=== PATIENT | female | born 1945 | race American Indian/Alaskan Native ===

== ENCOUNTER 2018-08-01 13:31 | Inpatient (IN) | payer MEDICARE ==
[2018-08-01 15:50] LABS: Basophils % (Auto) 0.2 % (0.0-1.8); Eosinophils # (Auto) 0.2 K/mm3 (0.0-0.4); Eosinophils % (Auto) 4.2 % (0.0-4.3); Hematocrit 40.9 % (30.3-42.9); Hemoglobin 13.6 gm/dl (10.1-14.3); Lymphocytes # (Auto) 0.6 K/mm3 (1.2-5.4); Mean Corpuscular HGB Conc 33 % (30-34); Mean Corpuscular Volume 88 fl (79-97); Monocytes # (Auto) 0.2 K/mm3 (0.0-0.8); Monocytes % (Auto) 4.3 % (0.0-7.3); Platelet Count 233 K/mm3 (140-440); Red Blood Count 4.63 M/mm3 (3.65-5.03); Red Cell Distribution Width 13.9 % (13.2-15.2)
[2018-08-01 16:01] LABS: INR 1.06 (0.87-1.13)
[2018-08-01 16:13] LABS: Albumin 3.3 g/dL (3.9-5); BUN/Creatinine Ratio 29; Blood Urea Nitrogen 23 mg/dL (7-17); Calcium 9.7 mg/dL (8.4-10.2); Hemolysis Index 6
[2018-08-01 16:32] LABS: Alanine Aminotransferase < 5 units/L (7-56)
--- NOTE | 2018-08-01 16:54 | Emergency Department Report ---
ED Female HPI - General Chief complaint: Vaginal Bleeding Stated complaint: VAGINAL BLEED Time Seen by Provider: 08/01/18 15:10 Source: family, EMS Mode of arrival: Stretcher Limitations: Altered Mental Status - History of Present Illness Initial comments: 73-year-old female with a past medical history of dementia, diabetes, hypertension, Parkinson's, patient is nonverbal, contracted with minimal spontaneous movement , can not interact/follow commands and with a PEG tube from shelter with vaginal bleeding today. states that she has had intermittent vaginal bleeding for the last 3 months. Initially this was thought to be due to blood thinners therefore the shelter discontinued her blood thinners. She continued to have intermittent bleeding and was seen by [facility] on July 14. Patient did not have any vaginal bleeding at that time. Yesterday patient was diagnosed with the UTI after urine was sent from the shelter. She was started on antibiotics yesterday and a dose this morning. Patient was sent to the ER for worsening/heavy vaginal bleeding today. Patient was here in on 07/28 and had incision and drainage of sacral abscess - Related Data Home Medications Medication Instructions Recorded Confirmed Last Taken Carbidopa/Levodopa 25-100 [Sinemet 1 each PO TID 02/18/15 08/01/18 02/18/15 25/100] Docusate Sodium [Colace CAP] 100 mg PO DAILY 02/18/15 08/01/18 02/18/15 Aspirin [Aspirin BABY CHEW TAB] 81 mg PO QDAY 08/01/18 08/01/18 Unknown Glycerin/Propylene Glycol 1 drop OU BID 08/01/18 08/01/18 Unknown [Artificial Tears Drops] Ibuprofen [Motrin] 800 mg FEEDTUBE DAILY 08/01/18 08/01/18 Unknown Insulin Aspart [NovoLOG Flexpen] See Protocol SQ AC 08/01/18 08/01/18 Unknown Insulin Detemir [Levemir Flextouch] 25 units SUB-Q QHS 08/01/18 08/01/18 Unknown Insulin NPH/Regular [NovoLIN 70/30] 24 units SUB-Q BID 08/01/18 08/01/18 Unknown Lisinopril [Zestril TAB] 2.5 mg PO QDAY 08/01/18 08/01/18 Unknown Multivitamin Tab W-MINERAL 1 each PO DAILY 08/01/18 08/01/18 Unknown [Multiple Vitamin/Mineral (Theragran M)] Nut.tx.gluc.intoler,Lac-Fr,Soy 65 ml FEEDTUBE CONT 08/01/18 08/01/18 Unknown [Glucerna 1.5 Montrell] Polyethylene Glycol 3350 17 gm PO DAILY 08/01/18 08/01/18 Unknown [Smoothlax] traMADol [Ultram] 50 mg FEEDTUBE Q6HR PRN 08/01/18 08/01/18 Unknown Allergies Allergy/AdvReac Type Severity Reaction Status Date / Time Sulfa (Sulfonamide Allergy Unknown Verified 02/18/15 16:50 Antibiotics) ED Review of Systems ROS: Stated complaint: VAGINAL BLEED Other details as noted in HPI ED Past Medical Hx - Past Medical History Hx Hypertension: Yes Hx Diabetes: Yes Hx Liver Disease: No Hx Arthritis: Yes Hx Seizures: No Hx Psychiatric Treatment: Yes (anxiety/depression) Hx Dementia: Yes Hx HIV: No Additional medical history: GERD, UTI, flaccid neuropathic bladder, parkinsons, constipation - Surgical History Additional Surgical History: unknown - Social History Smoking Status: Never Smoker Substance Use Type: None - Medications Home Medications: Home Medications Medication Instructions Recorded Confirmed Last Taken Type Carbidopa/Levodopa 25-100 [Sinemet 1 each PO TID 02/18/15 08/01/18 02/18/15 History 25/100] Docusate Sodium [Colace CAP] 100 mg PO DAILY 02/18/15 08/01/18 02/18/15 History Aspirin [Aspirin BABY CHEW TAB] 81 mg PO QDAY 08/01/18 08/01/18 Unknown History Glycerin/Propylene Glycol 1 drop OU BID 08/01/18 08/01/18 Unknown History [Artificial Tears Drops] Ibuprofen [Motrin] 800 mg FEEDTUBE DAILY 08/01/18 08/01/18 Unknown History Insulin Aspart [NovoLOG Flexpen] See Protocol SQ AC 08/01/18 08/01/18 Unknown History Insulin Detemir [Levemir Flextouch] 25 units SUB-Q QHS 08/01/18 08/01/18 Unknown History Insulin NPH/Regular [NovoLIN 70/30] 24 units SUB-Q BID 08/01/18 08/01/18 Unknown History Lisinopril [Zestril TAB] 2.5 mg PO QDAY 08/01/18 08/01/18 Unknown History Multivitamin Tab W-MINERAL 1 each PO DAILY 08/01/18 08/01/18 Unknown History [Multiple Vitamin/Mineral (Theragran M)] Nut.tx.gluc.intoler,Lac-Fr,Soy 65 ml FEEDTUBE CONT 08/01/18 08/01/18 Unknown History [Glucerna 1.5 Montrell] Polyethylene Glycol 3350 17 gm PO DAILY 08/01/18 08/01/18 Unknown History [Smoothlax] traMADol [Ultram] 50 mg FEEDTUBE Q6HR PRN 08/01/18 08/01/18 Unknown History ED Physical Exam - General Limitations: Altered Mental Status - Other Other exam information: General: No limitations, patient is alert in no acute distress Head exam: Atraumatic, normocephalic Eyes exam: Normal appearance ENT: Moist mucous membrane, normal oropharynx Neck exam: Normal inspection, full range of motion, no meningismus nontender Respiratory exam: Clear to auscultation bilateral, no wheezes, rales, crackles Cardiovascular: Normal rate and rhythm, normal heart sounds Abdomen: Soft, nondistended, and nontender, with normal bowel sounds, no rebound, or guarding. PEG tube : Vaginal blood noted on digital exam Rectal: Brown stool noted on digital rectal exam without gross bleeding or melena Back: Normal Inspection, full range of motion, no tenderness Neurologic: Opens eyes to voice, does not follow commands, does not speak, and onto no spontaneous movement of extremities. Psychiatric: normal affect, normal mood Skin: Sacral wound noted status post I&D without active drainage ED Course Vital Signs 08/01/18 08/01/18 15:08 18:07 Temperature 98 F Pulse Rate 87 76 Respiratory 16 16 Rate Blood Pressure 106/67 127/70 [Left] O2 Sat by Pulse 96 95 Oximetry - Consultations Consultation #1: 08/01/18 19:33 Case Jacek urology, will consult 08/01/18 19:[address] [facility] [employer]AL[employer] SUPERVISOR, will consult ED Medical Decision Making - Lab Data Result diagrams: 08/01/18 15:42 08/01/18 15:42 Lab Results 08/01/18 08/01/18 08/01/18 Range/Units 15:42 15:42 15:42 WBC 4.2 L (4.5-11.0) K/mm3 RBC 4.63 (3.65-5.03) M/mm3 Hgb 13.6 (10.1-14.3) gm/dl Hct 40.9 (30.3-42.9) % MCV 88 (79-97) fl MCH 29 (28-32) pg MCHC 33 (30-34) % RDW 13.9 (13.2-15.2) % Plt Count 233 (140-440) K/mm3 Lymph % (Auto) 15.0 (13.4-35.0) % Porter % (Auto) 4.3 (0.0-7.3) % Eos % (Auto) 4.2 (0.0-4.3) % Baso % (Auto) 0.2 (0.0-1.8) % Lymph # 0.6 L (1.2-5.4) K/mm3 Porter # 0.2 (0.0-0.8) K/mm3 Eos # 0.2 (0.0-0.4) K/mm3 Baso # 0.0 (0.0-0.1) K/mm3 Seg Neutrophils % 76.3 H (40.0-70.0) % Seg Neutrophils # 3.2 (1.8-7.7) K/mm3 PT 14.5 (12.2-14.9) Sec. INR 1.06 (0.87-1.13) APTT 31.0 (24.2-36.6) Sec. Sodium 143 (137-145) mmol/L Potassium 4.1 (3.6-5.0) mmol/L Chloride 105.7 (98-107) mmol/L Carbon Dioxide 27 (22-30) mmol/L Anion Gap 14 mmol/L BUN 23 H (7-17) mg/dL Creatinine 0.8 (0.7-1.2) mg/dL Estimated GFR > 60 ml/min BUN/Creatinine Ratio 29 % Glucose 83 (65-100) mg/dL Calcium 9.7 (8.4-10.2) mg/dL Total Bilirubin 0.20 (0.1-1.2) mg/dL AST 17 (5-40) units/L ALT < 5 L (7-56) units/L Alkaline Phosphatase 63 (35-129) units/L Total Protein 7.0 (6.3-8.2) g/dL Albumin 3.3 L (3.9-5) g/dL Albumin/Globulin Ratio 0.9 % Urine Color (Yellow) Urine Turbidity (Clear) Urine pH (5.0-7.0) Ur Specific Butternut (1.003-1.030) Urine Protein (Negative) mg/dL Urine Glucose (UA) (Negative) mg/dL Urine Ketones (Negative) mg/dL Urine Blood (Negative) Urine Nitrite (Negative) Urine Bilirubin (Negative) Urine Urobilinogen (<2.0) mg/dL Ur Leukocyte Esterase (Negative) Urine WBC (Auto) (0.0-6.0) /HPF Urine RBC (Auto) (0.0-6.0) /HPF U Epithel Cells (Auto) (0-13.0) /HPF 08/01/18 Range/Units 17:11 WBC (4.5-11.0) K/mm3 RBC (3.65-5.03) M/mm3 Hgb (10.1-14.3) gm/dl Hct (30.3-42.9) % MCV (79-97) fl MCH (28-32) pg MCHC (30-34) % RDW (13.2-15.2) % Plt Count (140-440) K/mm3 Lymph % (Auto) (13.4-35.0) % Porter % (Auto) (0.0-7.3) % Eos % (Auto) (0.0-4.3) % Baso % (Auto) (0.0-1.8) % Lymph # (1.2-5.4) K/mm3 Porter # (0.0-0.8) K/mm3 Eos # (0.0-0.4) K/mm3 Baso # (0.0-0.1) K/mm3 Seg Neutrophils % (40.0-70.0) % Seg Neutrophils # (1.8-7.7) K/mm3 PT (12.2-14.9) Sec. INR (0.87-1.13) APTT (24.2-36.6) Sec. Sodium (137-145) mmol/L Potassium (3.6-5.0) mmol/L Chloride (98-107) mmol/L Carbon Dioxide (22-30) mmol/L Anion Gap mmol/L BUN (7-17) mg/dL Creatinine (0.7-1.2) mg/dL Estimated GFR ml/min BUN/Creatinine Ratio % Glucose (65-100) mg/dL Calcium (8.4-10.2) mg/dL Total Bilirubin (0.1-1.2) mg/dL AST (5-40) units/L ALT (7-56) units/L Alkaline Phosphatase (35-129) units/L Total Protein (6.3-8.2) g/dL Albumin (3.9-5) g/dL Albumin/Globulin Ratio % Urine Color Red (Yellow) Urine Turbidity Cloudy (Clear) Urine pH 7.0 (5.0-7.0) Ur Specific Butternut 1.028 (1.003-1.030) Urine Protein 100 mg/dl (Negative) mg/dL Urine Glucose (UA) Neg (Negative) mg/dL Urine Ketones Tr (Negative) mg/dL Urine Blood Lg (Negative) Urine Nitrite Neg (Negative) Urine Bilirubin Neg (Negative) Urine Urobilinogen < 2.0 (<2.0) mg/dL Ur Leukocyte Esterase Mod (Negative) Urine WBC (Auto) > 182.0 H (0.0-6.0) /HPF Urine RBC (Auto) > 182.0 (0.0-6.0) /HPF U Epithel Cells (Auto) 7.0 (0-13.0) /HPF - Radiology Data Radiology results: report reviewed PROCEDURE: PELVIC ULTRASOUND, TRANSVAGINAL TECHNIQUE: Ultrasound examination of the pelvis using transvaginal technique HISTORY: post menopausal vag bleeding COMPARISONS: None FINDINGS: PELVIC ULTRASOUND, TRANSVAGINAL: Uterus size and shape are normal, 7.2 x 3.1 x 5.0 cm. Small hypoechoic nodule upper findings may be a smoothly marginated fibroid measuring 17 mm. The endometrium is homogenous. Endometrial thickness is 6.0 mm. There is no cul-de-sac free fluid. No left adnexal abnormality. Left ovary not visualized with transvaginal technique. What appears to be the right ovary appears to contain nonspecific linear calcification. Right ovarian size 3.2 x 1.0 x 1.5 cm. IMPRESSION: Small nodule upper uterine fundus may be a fibroid Left ovary not visualized with transvaginal technique What may be the right ovary appears to contain nonspecific calcification PROCEDURE: US PELVIC COMPLETE TECHNIQUE: Transabdominal grayscale and color-flow imaging of the pelvis was performed. HISTORY: post menopausal vag bleeding COMPARISONS: Transvaginal study also performed today FINDINGS: The urinary bladder is moderately distended and appears to contain debris in the dependent portion of the urinary bladder. Differential diagnosis includes a urinary bladder mass. The uterus measures 7.2 cm x 3.1 cm x 5 cm. Endometrial thickness measures 7 mm. There is a small amount of free fluid in the cul-de-sac. The left ovary measures 1.3 cm x 2 cm x 1.7 cm and is unremarkable in appearance. The right ovary is not visualized. IMPRESSION: 1. Debris in the dependent portion of the urinary bladder versus mass in the posterior aspect of the urinary bladder. 2. Increased thickness of the endometrium (7 mm). 3. Small amount of free fluid in the pelvis. 4. The left ovary is unremarkable. The right ovary is not visualized. MRI of the pelvis may be helpful for further evaluation. Alternatively CT of the pelvis with IV contrast may be helpful. - Medical Decision Making h/h and coags normal rocephin for uti, and urine cultures pending victoria with gross hematuria Case discussed with urology and METALIZING SUPERVISOR for in-house consult Hospitalist informed of admission - Differential Diagnosis uti, cancer, fistula Critical Care Time: No Critical care attestation.: If time is entered above; I have spent that time in minutes in the direct care of this critically ill patient, excluding procedure time. ED Disposition Clinical Impression: Postmenopausal vaginal bleeding, UTI (urinary tract infection), Hematuria, Parkinson disease Disposition: OP ADMIT IP TO THIS HOSP Is pt being admited?: Yes Condition: Stable Time of Disposition: 19:38 (DR Palma/hosp)
--- NOTE | 2018-08-01 17:32 | Ultrasound Report ---
PROCEDURE: PELVIC ULTRASOUND, TRANSVAGINAL TECHNIQUE: Ultrasound examination of the pelvis using transvaginal technique HISTORY: post menopausal vag bleeding COMPARISONS: None FINDINGS: PELVIC ULTRASOUND, TRANSVAGINAL: Uterus size and shape are normal, 7.2 x 3.1 x 5.0 cm. Small hypoechoic nodule upper findings may be a smoothly marginated fibroid measuring 17 mm. The endometrium is homogenous. Endometrial thickness is 6.0 mm. There is no cul-de-sac free fluid. No left adnexal abnormality. Left ovary not visualized with transv aginal technique. What appears to be the right ovary appears to contain nonspecific linear calcification. Right ovarian size 3.2 x 1.0 x 1.5 cm. IMPRESSION: Small nodule upper uterine fundus may be a fibroid Left ovary not visualized with transvaginal technique What may be the right ovary appears to contain nonspecific calcification This document is electronically signed by Saul Tatum MD., August 01 2018 05:30:48 PM ET
--- NOTE | 2018-08-01 18:03 | Ultrasound Report ---
PROCEDURE: US PELVIC COMPLETE TECHNIQUE: Transabdominal grayscale and color-flow imaging of the pelvis was performed. HISTORY: post menopausal vag bleeding COMPARISONS: Transvaginal study also performed today FINDINGS: The urinary bladder is moderately distended and appears to contain debris in the dependent portion of the urinary bladder. Differential diagnosis includes a urinary bladder mass. The uterus measures 7.2 cm x 3.1 cm x 5 cm. Endometrial thickness measures 7 mm. There is a small amount of free fluid in the cul-de-sac. The left ovary measures 1.3 cm x 2 cm x 1.7 cm and is unremarkable in appearance. The right ovary is not visualized. IMPRESSION: 1. Debris in the dependent portion of the urinary bladder versus mass in the posterior aspect of the urinary bladder. 2. Increased thickness of the endometrium (7 mm). 3. Small amount of free fluid in the pelvis. 4. The left ovary is unremarkable. The right ovary is not visualized. MRI of the pelvis may be helpful for further evaluation. Alternatively CT of the pelvis with IV contr ast may be helpful. This document is electronically signed by Nicole Lomas MD., August 01 2018 06:02:02 PM ET
[2018-08-01 19:05] LABS: Color,Urine Red (Yellow)
[2018-08-01 19:06] LABS: Bilirubin,Urine NEG (Negative); Blood,Urine LG (Negative); RBC,Urine > 182.0 /HPF (0.0-6.0); Urobilinogen,Urine < 2.0 mg/dL (<2.0); WBC,Urine > 182.0 /HPF (0.0-6.0)
[2018-08-01] MEDS ORDERED: ROCEPHIN/NS 1 GM/50 ML 1 GM/50 ML BAG IV ONE (19:14)
[2018-08-01] MEDS ORDERED: NACL 0.9% 500 ML 500 ML IV ONE (21:47)
[2018-08-01] MEDS ORDERED: ZOFRAN IV PRN (22:00)
[2018-08-01] MEDS ORDERED: MORPHINE IV PRN (22:00)
[2018-08-01] MEDS ORDERED: D50W (25GM) Syringe IV PRN (22:02)
[2018-08-02] MEDS: NACL 0.9% 1000 ML 1,000 ML IV SCH ×5 (01:03→23:04)
[2018-08-02 01:18] LABS: Hematocrit 44.1 % (30.3-42.9); Hemoglobin 14.4 gm/dl (10.1-14.3)
[2018-08-02 08:07] LABS: Hematocrit 41.8 % (30.3-42.9); Hemoglobin 13.4 gm/dl (10.1-14.3)
[2018-08-02] MEDS: HumuLIN R SUB-Q SCH ×4 (08:14→23:07)
--- NOTE | 2018-08-02 08:28 | Consultation ---
History of Present Illness Consult date: 08/02/18 Reason for consult: other (vaginal bleeding) History of present illness: 73y/o female who presents to the ED from the skilled nursing with the complaint of presumed vaginal bleeding. The patient is non-verbal and the history was obtained from the spouse in the ED. Pelvic ultrasound was performed with minimally thickened endometrium of 6-7mm and findings of small leiomyoma. The abdominal ultrasound was concerning for a possible mass in the urinary bladder. Upon placement of the victoria, findings of blood and particulate matter. Past History Past Medical History: diabetes, other (Parkinson's disease; dementia) Social history: Medications and Allergies Allergies Allergy/AdvReac Type Severity Reaction Status Date / Time Sulfa (Sulfonamide Allergy Unknown Verified 02/18/15 16:50 Antibiotics) Home Medications Medication Instructions Recorded Confirmed Last Taken Type Carbidopa/Levodopa 25-100 [Sinemet 1 each PO TID 02/18/15 08/01/18 02/18/15 History 25/100] Docusate Sodium [Colace CAP] 100 mg PO DAILY 02/18/15 08/01/18 02/18/15 History Aspirin [Aspirin BABY CHEW TAB] 81 mg PO QDAY 08/01/18 08/01/18 Unknown History Glycerin/Propylene Glycol 1 drop OU BID 08/01/18 08/01/18 Unknown History [Artificial Tears Drops] Ibuprofen [Motrin] 800 mg FEEDTUBE DAILY 08/01/18 08/01/18 Unknown History Insulin Aspart [NovoLOG Flexpen] See Protocol SQ AC 08/01/18 08/01/18 Unknown History Insulin Detemir [Levemir Flextouch] 25 units SUB-Q QHS 08/01/18 08/01/18 Unknown History Insulin NPH/Regular [NovoLIN 70/30] 24 units SUB-Q BID 08/01/18 08/01/18 Unknown History Lisinopril [Zestril TAB] 2.5 mg PO QDAY 08/01/18 08/01/18 Unknown History Multivitamin Tab W-MINERAL 1 each PO DAILY 08/01/18 08/01/18 Unknown History [Multiple Vitamin/Mineral (Theragran M)] Nut.tx.gluc.intoler,Lac-Fr,Soy 65 ml FEEDTUBE CONT 08/01/18 08/01/18 Unknown History [Glucerna 1.5 Montrell] Polyethylene Glycol 3350 17 gm PO DAILY 08/01/18 08/01/18 Unknown History [Smoothlax] traMADol [Ultram] 50 mg FEEDTUBE Q6HR PRN 08/01/18 08/01/18 Unknown History Active Meds: Active Medications Acetaminophen (Tylenol) 650 mg PO Q4H PRN PRN Reason: Fever >101 Dextrose (D50w (25gm) Syringe) 50 ml IV PRN PRN PRN Reason: Hypoglycemia Sodium Chloride (Nacl 0.9% 1000 Ml) 1,000 mls @ 100 mls/hr IV DIRECT DIANNE Last Admin: 08/02/18 01:03 Dose: 100 mls/hr Documented by: Ceftriaxone Sodium (Rocephin/Ns 1 Gm/50 Ml) 1 gm in 50 mls @ 100 mls/hr IV Q24HR DIANNE; Protocol Sodium Chloride (Nacl 0.9% 500 Ml) 500 mls @ 999 mls/hr IV ONCE ONE Stop: 08/02/18 09:00 Insulin Human Regular (Humulin R) 0 units SUB-Q AC DIANNE; Protocol Last Admin: 08/02/18 08:14 Dose: Not Given Documented by: Insulin Human Regular (Humulin R) 0 units SUB-Q QHS DIANNE; Protocol Morphine Sulfate (Morphine) 2 mg IV Q4H PRN PRN Reason: Pain, Moderate (4-6) Ondansetron HCl (Zofran) 4 mg IV Q8H PRN PRN Reason: Nausea And Vomiting Review of Systems Genitourinary: vaginal bleeding, hematuria - Vital Signs Vital signs: Vital Signs Temp Pulse Resp BP Pulse Ox 98 F 87 16 106/67 96 08/01/18 15:08 08/01/18 15:08 08/01/18 15:08 08/01/18 15:08 08/01/18 15:08 Temp Pulse Resp BP Pulse Ox 100.1 F H 84 18 77/46 92 08/02/18 07:25 08/02/18 07:25 08/02/18 07:25 08/02/18 07:25 08/02/18 07:25 - Physical Exam Abdomen: Positive: normal appearance, soft Genitourinary (Female): Positive: normal external genitalia, other (no wallace bleeding on perineum; finger placed vaginally without evidence of vaginal mass nor blood on glove) Results Result Diagrams: 08/02/18 07:48 08/01/18 15:42 Abnormal lab results 08/01/18 08/01/18 08/01/18 Range/Units 15:42 15:42 17:11 WBC 4.2 L (4.5-11.0) K/mm3 Hgb (10.1-14.3) gm/dl Hct (30.3-42.9) % Lymph # 0.6 L (1.2-5.4) K/mm3 Seg Neutrophils % 76.3 H (40.0-70.0) % BUN 23 H (7-17) mg/dL POC Glucose (70-105) ALT < 5 L (7-56) units/L Albumin 3.3 L (3.9-5) g/dL Urine WBC (Auto) > 182.0 H (0.0-6.0) /HPF 08/02/18 08/02/18 Range/Units 01:02 08:07 WBC (4.5-11.0) K/mm3 Hgb 14.4 H (10.1-14.3) gm/dl Hct 44.1 H (30.3-42.9) % Lymph # (1.2-5.4) K/mm3 Seg Neutrophils % (40.0-70.0) % BUN (7-17) mg/dL POC Glucose 169 H (70-105) ALT (7-56) units/L Albumin (3.9-5) g/dL Urine WBC (Auto) (0.0-6.0) /HPF All other labs normal. Assessment and Plan - Patient Problems (1) Hematuria Current Visit: Yes Status: Acute Plan to address problem: secondary to patient's physical status a thorough exam is difficult would recommend further imaging to better assess the urinary bladder mass urology consultation would be beneficial; if a cystoscopy is performed under anesthesia, I would be more than willing to perform an endometrial biopsy at the same time to better assess the endometrium for pathology my suspicion for school janitor pathology is low thank you for the consult Wanda Holt MD (2) Parkinson disease Current Visit: Yes Status: Acute (3) Postmenopausal vaginal bleeding Current Visit: Yes Status: Acute
[2018-08-02] MEDS ORDERED: NACL 0.9% 500 ML 500 ML IV ONE (08:30)
--- NOTE | 2018-08-02 08:56 | Event Note ---
Date: 08/02/18 Please contact me if urology decides to proceed with a cystoscopy; I can also perform a more detailed exam under anesthesia along with an endometrial biopsy. Would recommend contacting the previous [facility] chalk extruding machine operator to determine if the biopsy was already performed in their office.
--- NOTE | 2018-08-02 09:34 | History and Physical Report ---
CHIEF COMPLAINT: Vaginal bleeding. HISTORY OF PRESENT ILLNESS: The patient is a 73-year-old female brought from the skilled nursing because of vaginal bleeding. The patient's says that the patient has had intermittent vaginal bleeding going on for about 3 months. Initially, the skilled nursing thought that the bleeding was due to blood thinner and discontinued the patient's blood thinner, but she continued to have intermittent bleeding. Was seen by [facility] on 07/14/2018 and the patient did not have vaginal bleeding at that time and was also diagnosed with UTI a day prior to presentation. The patient was subsequently started on antibiotics and then sent to the Emergency Room because of vaginal bleeding that started getting heavy. PAST MEDICAL HISTORY: Pertinent for hypertension, diabetes mellitus, arthritis, anxiety disorder and depression and also the patient has past medical history of dementia, gastroesophageal reflux disease, urinary tract infection/flaccid neuropathic bladder, Parkinson's and also the patient has past history of constipation. PAST SURGICAL HISTORY: Unremarkable. FAMILY HISTORY: Family history is noncontributory. SOCIAL HISTORY: The patient stays at the skilled nursing. Does not smoke, does not drink alcohol and does not use illicit drugs. MEDICATIONS: The patient is on Sinemet 25/100 one by mouth 3 times daily, Colace 100 mg by mouth daily, aspirin 81 mg by mouth daily. Also, the patient is on artificial tears one drop to the right eye twice daily and is on Motrin 800 mg daily. The patient is on insulin aspart per sliding scale and also on Levemir insulin 25 units subcutaneous at bedtime. The patient is on MPH regular insulin 70/30 25 units subcutaneous b.i.d. and lisinopril 2.5 mg by mouth daily. The patient is on multivitamin 1 by mouth daily and on Glucerna 65 mL per feeding tube. The patient is on MiraLax 17 g daily by mouth and tramadol 50 mg every 6 hours as needed for pain per tube. ALLERGIES: THE PATIENT IS ALLERGIC TO SULFA DRUGS. REVIEW OF SYSTEMS: CONSTITUTIONAL: There is no fever, no chills, no diaphoresis. HEENT: There is no headache or sore throat. CARDIOVASCULAR SYSTEM: There is no chest pain or orthopnea. RESPIRATORY SYSTEM: There is no shortness of breath or cough. GASTROINTESTINAL SYSTEM: There is no nausea, no vomiting, no abdominal pain, diarrhea or constipation. NEUROLOGICAL SYSTEM: There is no numbness, no dizziness, no altered mental status. MUSCULOSKELETAL SYSTEM: There is no joint pain or swelling. DERMATOLOGICAL SYSTEM: There is no skin rash or itching. GENITOURINARY SYSTEM: Vaginal bleeding present and hematuria present. No flank pain. No dysuria. Rest of system review is normal. PHYSICAL EXAMINATION: GENERAL: At the time of exam, the patient was found to be alert, oriented x 3 and not in acute distress. VITAL SIGNS: At the initial time of presentation show temperature of 98 degrees Fahrenheit, pulse of 87, respirations 16, blood pressure 106/67, O2 sat of 96% on room air. HEENT: Showed pupils to be equal, round, and reactive to light and accommodating. Extraocular muscles are intact. NECK: Neck is supple with no JVD or carotid bruit. CARDIOVASCULAR SYSTEM: Showed normal first and second heart sounds with no gallops or murmurs. RESPIRATORY SYSTEM: Showed good air entry on both sides of the lungs with no abnormal breath sounds. GASTROINTESTINAL SYSTEM: Show abdomen to be full, soft, nontender with no organomegaly or rigidity. NEUROLOGIC: Shows no focal deficit. MUSCULOSKELETAL SYSTEM: Show no joint swelling or tenderness. DERMATOLOGICAL SYSTEM: Show no skin rash. GENITOURINARY SYSTEM: Showing no costovertebral angle tenderness. PERTINENT LABORATORY AND IMAGING STUDIES: The patient had pelvic ultrasound done and this shows small nodule in the upper uterine fundus, which may be a fibroid according to the radiologist. There is finding of left ovary not visualized with transvaginal technique according to the radiologist. There is a shadow that may be the right ovary that appears to contain no specific calcification according to the radiologist. The patient's pelvic ultrasound shows debris in the dependent portion of the urinary bladder versus mass in the posterior aspect of the urinary bladder. There is finding of increased thickening of the endometrial and small amount of free fluid in the pelvis and the radiologist said that the left ovary is unremarkable, but the right is not visualized and says that MRI of the pelvis may be helpful. Lab result: The patient has CBC done with low white count of 4.2, normal hematocrit and normal hemoglobin was noted with CBC differential showing slightly elevated segmental neutrophil count of 76.3 and the patient's chemistry show high BUN of 23 with urinalysis showing high urine wbc's of greater 182 with moderate urine leukocyte esterase and negative nitrite and high urine rbc. DIAGNOSES: 1. Vaginal bleeding. 2. Bladder mass. 3. Urinary tract infection. PLAN OF CARE: 1. The patient will be admitted to medical floor. 2. The patient will continue Urology consult with Dr. Jeff Read and also will continue gynecological consult with Dr. Wanda Myles. 3. The patient will have hemoglobin and hematocrit checked every 6 hours serially x 3 more levels. 4. The patient will be on IV ceftriaxone 1 gram daily for treatment of UTI. 5. The patient will be on IV normal saline running at 100 mL an hour and will be on IV Zofran 4 mg every 8 hours for nausea and vomiting. 6. The patient will have Accu-Chek before meals and at bedtime, followed by low-dose sliding scale using regular insulin coverage. DVT prophylaxis will be true sequential compressive device. JOB# [id number] OCN/NTS MTDGarima
[2018-08-02] MEDS: ROCEPHIN/NS 1 GM/50 ML 1 GM/50 ML BAG IV SCH (09:40)
[2018-08-02] MEDS: TYLENOL PO PRN (12:40)
--- NOTE | 2018-08-02 13:33 | Progress Note ---
Assessment and Plan severe dementia pt has had cysto 1-[address] schumacher all neg rec ct can do cysto again as out pt if needed no acute emergency dictated Subjective Date of service: 08/02/18 Principal diagnosis: hematuria uti Objective - Constitutional Vitals: Vital Signs - 12hr 08/02/18 08/02/18 08/02/18 01:59 02:44 02:47 Temperature 98.6 F Pulse Rate 75 75 25 L Pulse Rate [ Apical] Respiratory 22 Rate Blood Pressure 148/127 Blood Pressure [Left] O2 Sat by Pulse 96 62 L 100 Oximetry 08/02/18 08/02/18 08/02/18 04:00 07:25 10:00 Temperature 100.1 F H 98 F Pulse Rate 68 84 63 Pulse Rate [ 63 Apical] Respiratory 18 22 Rate Blood Pressure 77/46 Blood Pressure 138/96 150/123 [Left] O2 Sat by Pulse 92 97 Oximetry 08/02/18 10:30 Temperature Pulse Rate 64 Pulse Rate [ Apical] Respiratory 22 Rate Blood Pressure Blood Pressure 140/100 [Left] O2 Sat by Pulse 97 Oximetry General appearance: Present: no acute distress - Psychiatric Psychiatric: other (dementia ) - Labs CBC & Chem 7: 08/02/18 07:48 08/01/18 15:42 Labs: Abnormal lab results 08/01/18 08/01/18 08/01/18 Range/Units 15:42 15:42 17:11 WBC 4.2 L (4.5-11.0) K/mm3 Hgb (10.1-14.3) gm/dl Hct (30.3-42.9) % Lymph # 0.6 L (1.2-5.4) K/mm3 Seg Neutrophils % 76.3 H (40.0-70.0) % BUN 23 H (7-17) mg/dL POC Glucose (70-105) ALT < 5 L (7-56) units/L Albumin 3.3 L (3.9-5) g/dL Urine WBC (Auto) > 182.0 H (0.0-6.0) /HPF 08/02/18 08/02/18 08/02/18 Range/Units 01:02 08:07 11:18 WBC (4.5-11.0) K/mm3 Hgb 14.4 H (10.1-14.3) gm/dl Hct 44.1 H (30.3-42.9) % Lymph # (1.2-5.4) K/mm3 Seg Neutrophils % (40.0-70.0) % BUN (7-17) mg/dL POC Glucose 169 H 178 H (70-105) ALT (7-56) units/L Albumin (3.9-5) g/dL Urine WBC (Auto) (0.0-6.0) /HPF Medications & Allergies - Medications Allergies/Adverse Reactions: Allergies Sulfa (Sulfonamide Antibiotics) Allergy (Verified 02/18/15 16:50) Unknown Home Medications: Home Medications Medication Instructions Recorded Confirmed Last Taken Type Carbidopa/Levodopa 25-100 [Sinemet 1 each PO TID 02/18/15 08/01/18 02/18/15 History 25/100] Docusate Sodium [Colace CAP] 100 mg PO DAILY 02/18/15 08/01/18 02/18/15 History Aspirin [Aspirin BABY CHEW TAB] 81 mg PO QDAY 08/01/18 08/01/18 Unknown History Glycerin/Propylene Glycol 1 drop OU BID 08/01/18 08/01/18 Unknown History [Artificial Tears Drops] Ibuprofen [Motrin] 800 mg FEEDTUBE DAILY 08/01/18 08/01/18 Unknown History Insulin Aspart [NovoLOG Flexpen] See Protocol SQ AC 08/01/18 08/01/18 Unknown History Insulin Detemir [Levemir Flextouch] 25 units SUB-Q QHS 08/01/18 08/01/18 Unknown History Insulin NPH/Regular [NovoLIN 70/30] 24 units SUB-Q BID 08/01/18 08/01/18 Unknown History Lisinopril [Zestril TAB] 2.5 mg PO QDAY 08/01/18 08/01/18 Unknown History Multivitamin Tab W-MINERAL 1 each PO DAILY 08/01/18 08/01/18 Unknown History [Multiple Vitamin/Mineral (Theragran M)] Nut.tx.gluc.intoler,Lac-Fr,Soy 65 ml FEEDTUBE CONT 08/01/18 08/01/18 Unknown History [Glucerna 1.5 [place]] Polyethylene Glycol 3350 17 gm PO DAILY 08/01/18 08/01/18 Unknown History [Smoothlax] traMADol [Ultram] 50 mg FEEDTUBE Q6HR PRN 08/01/18 08/01/18 Unknown History Active Medications: Generic Name Dose Route Start Last Admin Trade Name Bebeto PRN Reason Stop Dose Admin Acetaminophen 650 mg 08/01/18 22:01 08/02/18 12:40 Tylenol PO 650 mg Q4H PRN Administration Fever >101 Dextrose 50 ml 08/01/18 22:02 D50w (25gm) Syringe IV PRN PRN Hypoglycemia Sodium Chloride 1,000 mls @ 100 mls/hr 08/01/18 22:00 08/02/18 12:49 Nacl 0.9% 1000 Ml IV 100 mls/hr DIRECT DIANNE Administration Ceftriaxone Sodium 1 gm in 50 mls @ 100 mls/hr 08/02/18 10:00 08/02/18 09:40 Rocephin/Ns 1 Gm/50 Ml IV 100 mls/hr Q24HR DIANNE Administration Protocol Insulin Human Regular 0 units 08/02/18 07:30 08/02/18 12:37 Humulin R SUB-Q Not Given AC DIANNE Protocol Insulin Human Regular 0 units 08/02/18 22:00 Humulin R SUB-Q QHS DIANNE Protocol Morphine Sulfate 2 mg 08/01/18 22:00 Morphine IV Q4H PRN Pain, Moderate (4-6) Ondansetron HCl 4 mg 08/01/18 22:00 Zofran IV Q8H PRN Nausea And Vomiting
[2018-08-02 13:44] LABS: Hematocrit 38.7 % (30.3-42.9); Hemoglobin 12.4 gm/dl (10.1-14.3)
[2018-08-02] MEDS ORDERED: SIMPLE SYRUP FEEDTUBE PRN ×2 (14:22)
[2018-08-02] MEDS ORDERED: SODIUM BICARBONATE FEEDTUBE PRN (14:22)
[2018-08-02] MEDS ORDERED: PANCREAZE DR 10,500 UNIT FEEDTUBE PRN (14:22)
--- NOTE | 2018-08-02 15:59 | Progress Note ---
Assessment and Plan Assessment and plan: Patient is a 73 yo woman from [facility] with a history of PEG tube, Dementia, IDDM, hypertension and PD who presented to [facility] with vaginal bleeding, Pelvic ultrasound was performed with minimally thickened endometrium of 6-7mm and findings of small leiomyoma. The abdominal ultrasound was concerning for a possible mass in the urinary bladder. Upon placement of the victoria, findings of blood and particulate matter. Patient was just seen in ED for perineal abscess s/p I-n-D on 07/28/18 Vaginal bleeding: prosthetics lab technician consulted Bladder mass: Urology following UTI: treat with abx History Interval history: Patient was seen and examined. Follow-up on current diagnosis. Overnight uneventful. Patient is confused. Imaging, nursing note, chart, labs and old chart reviewed. Hospitalist Physical - Physical exam Narrative exam: Gen: WDWN, NAD, Awake, Alert, Orientated x 1 HEENT: NCAT, EOMI, PERRL, OP Clear Neck: supple, no adenopathy, no thyromegaly, no JVD CVS/Heart: RRR, normal S1S2, pulses present bilaterally Chest/Lungs: CTA B, Symmetrical chest expansion, good air entry bilaterally GI/Abdomen: soft, PEG tube, good bowel sounds, no guarding or rebound /Bladder: no suprapubic tenderness, no CVA or paraspinal tenderness Extermity/Skin: no c/c/e, no obvious rash MSK: FROM x 4 Neuro: CN 2-12 grossly intact, no new focal deficits Psych: calm - Constitutional Vitals: Temp Pulse Resp BP Pulse Ox 98.0 F 101 H 18 69/43 100 08/02/18 13:37 08/02/18 13:37 08/02/18 13:37 08/02/18 13:37 08/02/18 13:37 General appearance: Present: no acute distress Results - Labs CBC & Chem 7: 08/02/18 13:33 08/01/18 15:42 Labs: Laboratory Last Values WBC 4.2 K/mm3 (4.5-11.0) L 08/01/18 15:42 RBC 4.63 M/mm3 (3.65-5.03) 08/01/18 15:42 Hgb 12.4 gm/dl (10.1-14.3) 08/02/18 13:33 Hct 38.7 % (30.3-42.9) 08/02/18 13:33 MCV 88 fl (79-97) 08/01/18 15:42 MCH 29 pg (28-32) 08/01/18 15:42 MCHC 33 % (30-34) 08/01/18 15:42 RDW 13.9 % (13.2-15.2) 08/01/18 15:42 Plt Count 233 K/mm3 (140-440) 08/01/18 15:42 Lymph % (Auto) 15.0 % (13.4-35.0) 08/01/18 15:42 [place]ie % (Auto) 4.3 % (0.0-7.3) 08/01/18 15:42 Eos % (Auto) 4.2 % (0.0-4.3) 08/01/18 15:42 Baso % (Auto) 0.2 % (0.0-1.8) 08/01/18 15:42 Lymph # 0.6 K/mm3 (1.2-5.4) L 08/01/18 15:42 Davie # 0.2 K/mm3 (0.0-0.8) 08/01/18 15:42 Eos # 0.2 K/mm3 (0.0-0.4) 08/01/18 15:42 Baso # 0.0 K/mm3 (0.0-0.1) 08/01/18 15:42 Seg Neutrophils % 76.3 % (40.0-70.0) H 08/01/18 15:42 Seg Neutrophils # 3.2 K/mm3 (1.8-7.7) 08/01/18 15:42 PT 14.5 Sec. (12.2-14.9) 08/01/18 15:42 INR 1.06 (0.87-1.13) 08/01/18 15:42 APTT 31.0 Sec. (24.2-36.6) 08/01/18 15:42 Sodium 143 mmol/L (137-145) 08/01/18 15:42 Potassium 4.1 mmol/L (3.6-5.0) 08/01/18 15:42 Chloride 105.7 mmol/L (98-107) 08/01/18 15:42 Carbon Dioxide 27 mmol/L (22-30) 08/01/18 15:42 Anion Gap 14 mmol/L 08/01/18 15:42 BUN 23 mg/dL (7-17) H 08/01/18 15:42 Creatinine 0.8 mg/dL (0.7-1.2) 08/01/18 15:42 Estimated GFR > 60 ml/min 08/01/18 15:42 BUN/Creatinine Ratio 29 % 08/01/18 15:42 Glucose 83 mg/dL (65-100) 08/01/18 15:42 POC Glucose 178 (70-105) H 08/02/18 11:18 Calcium 9.7 mg/dL (8.4-10.2) 08/01/18 15:42 Total Bilirubin 0.20 mg/dL (0.1-1.2) 08/01/18 15:42 AST 17 units/L (5-40) 08/01/18 15:42 ALT < 5 units/L (7-56) L 08/01/18 15:42 Alkaline Phosphatase 63 units/L (35-129) 08/01/18 15:42 Total Protein 7.0 g/dL (6.3-8.2) 08/01/18 15:42 Albumin 3.3 g/dL (3.9-5) L 08/01/18 15:42 Albumin/Globulin Ratio 0.9 % 08/01/18 15:42 Urine Color Red (Yellow) 08/01/18 17:11 Urine Turbidity Cloudy (Clear) 08/01/18 17:11 Urine pH 7.0 (5.0-7.0) 08/01/18 17:11 Ur Specific Warren 1.028 (1.003-1.030) 08/01/18 17:11 Urine Protein 100 mg/dl mg/dL (Negative) 08/01/18 17:11 Urine Glucose (UA) Neg mg/dL (Negative) 08/01/18 17:11 Urine Ketones Tr mg/dL (Negative) 08/01/18 17:11 Urine Blood Lg (Negative) 08/01/18 17:11 Urine Nitrite Neg (Negative) 08/01/18 17:11 Urine Bilirubin Neg (Negative) 08/01/18 17:11 Urine Urobilinogen < 2.0 mg/dL (<2.0) 08/01/18 17:11 Ur Leukocyte Esterase Mod (Negative) 08/01/18 17:11 Urine WBC (Auto) > 182.0 /HPF (0.0-6.0) H 08/01/18 17:11 Urine RBC (Auto) > 182.0 /HPF (0.0-6.0) 08/01/18 17:11 U Epithel Cells (Auto) 7.0 /HPF (0-13.0) 08/01/18 17:11 Active Medications - Current Medications Current Medications: Generic Name Dose Route Start Last Admin Trade Name Freq PRN Reason Stop Dose Admin Acetaminophen 650 mg 08/01/18 22:01 08/02/18 12:40 Tylenol PO 650 mg Q4H PRN Administration Fever >101 Lipase/Protease/Amylase 1 each 08/02/18 14:22 Pancreaze 10,500 Unit FEEDTUBE PRN PRN For Clogged Feeding Tube Dextrose 50 ml 08/01/18 22:02 D50w (25gm) Syringe IV PRN PRN Hypoglycemia Sodium Chloride 1,000 mls @ 100 mls/hr 08/01/18 22:00 08/02/18 12:49 Nacl 0.9% 1000 Ml IV 100 mls/hr DIRECT DIANNE Administration Ceftriaxone Sodium 1 gm in 50 mls @ 100 mls/hr 08/02/18 10:00 08/02/18 09:40 Rocephin/Ns 1 Gm/50 Ml IV 100 mls/hr Q24HR DIANNE Administration Protocol Insulin Human Regular 0 units 08/02/18 07:30 08/02/18 12:37 Humulin R SUB-Q Not Given AC DIANNE Protocol Insulin Human Regular 0 units 08/02/18 22:00 Humulin R SUB-Q QHS DIANNE Protocol Morphine Sulfate 2 mg 08/01/18 22:00 Morphine IV Q4H PRN Pain, Moderate (4-6) Ondansetron HCl 4 mg 08/01/18 22:00 Zofran IV Q8H PRN Nausea And Vomiting Simple Syrup 15 ml 08/02/18 14:22 Simple Syrup FEEDTUBE PRN PRN Hypoglycemia Simple Syrup 30 ml 08/02/18 14:22 Simple Syrup FEEDTUBE PRN PRN Hypoglycemia Sodium Bicarbonate 325 mg 08/02/18 14:22 Sodium Bicarbonate FEEDTUBE PRN PRN For Clogged Feeding Tube Nutrition/Malnutrition Assess - Dietary Evaluation Nutrition/Malnutrition Findings: Nutrition Notes Start: 08/02/18 14:00 Freq: Status: Active Protocol: Document 08/02/18 14:00 (Rec: 08/02/18 14:07 [id number]) Co-Sign 08/02/18 14:00 LP Nutrition Notes Need for Assessment generated from: MD Order,flooring machine feeder Initial or Follow up Assessment Current Diagnosis Diabetes,Hypertension Other Pertinent Diagnosis Arthritis, anxiety disorder, depression, dementia, reflux disease, UTI Current Diet NPO Labs/Tests BUN: 23 POC: 178 Pertinent Medications D50W Height 5 ft 3 in Weight 71.6 kg [place] Body Weight (kg) 52.27 BMI 27.9 Weight Status Overweight Subjective/Other Information MD consult for Write/Manage TF . Observed patient in room. Pt states she's hungry. Pt was on glucerna before arrival while at skilled nursing. Pt was on glucerna 65ml/hr cyclic TF. Pt not able to tolerate full liquid diet. Burn Absent Trauma Absent #1 Nutrition Diagnosis Inadequate oral intake Etiology dementia and dysphagia As Evidenced by Signs and Symptoms Tube Feed regime at skilled nursing and choking on liquids during hospital Is patient on ventilator? No Is Patient Ambulatory and/or Out of Bed No REE-([facility]-confined to bed) 1422.492 Kcal/Kg value to use for calculation 25 Approximate Energy Requirements Using 1790 kcal/Kg Calculation Used for Recommendations Kcal/kg Additional Notes Protein: 86-107 g/day (1.2-1.5 g/kg) Fluid: 1 ml/kcal Nutrition Intervention Change Diet Order: Tube Feed Nutrition Support: Glucerna 1.2 @ 65ml/hr. Water flush 100 ml q 4 hr. Kcal 1,872 Protein (gm) 93 Fluid (mL) 1,255 Goal #1 TF tolerance Goal #2 Meet at least 75% of needs via TF Anticipated Discharge Needs: Tube Feed Follow-Up By: 08/04/18 Additional Comments F/U: New TF
--- NOTE | 2018-08-02 17:21 | Consultation ---
HISTORY OF PRESENT ILLNESS: The patient is a 73-year-old woman with severe dementia, noncommunicative, who has presented with vaginal bleeding and questionable debris in her bladder. She has had previous workup urologically within the last 1-[address] Gilmore. She is not hemorrhaging. The Kerr catheter was clear at this time. The rest of the history is unobtainable and could only be obtained from the chart and the patient's and son. PHYSICAL EXAMINATION: GENERAL: She is noncommunicative. She does not really moved. She is in no distress. ABDOMEN: Soft, nondistended. IMPRESSION: Vaginal bleeding with debris in the bladder, possible chronic urinary tract infection. We will get a CT scan without contrast just to be sure, hold cystoscopy unless there is an acute finding until she stabilizes as an outpatient. JOB# [id number] JOSELIN/JESUS
--- NOTE | 2018-08-02 18:05 | Cat Scan Report ---
PROCEDURE: CT ABDOMEN PELVIS WO CON TECHNIQUE: Axial helical imaging through the abdomen and pelvis with sagittal and coronal reformatte d images obtained. HISTORY: uti COMPARISONS: Pelvic ultrasound dated August 01, 2018. FINDINGS: Visualization of detail in portions of the abdomen and pelvis is limited by motion artifact. There appears to be areas of atelectasis in both lung bases. The gallbladder is moderately to markedly distended and contains a gallstone. There is no definite ev idence of pericholecystic inflammatory change. The liver, spleen and adrenal glands are unremarkable. There is a nonobstructing stone in the left renal pelvis. There is no evidence of hydronephrosis nor hydroureter. The bowel is normal caliber. The colon is largely air and fluid-filled with air-fluid levels and without definite evidence of raymond l wall thickening and no definite evidence of pericolic inflammatory change.. This may represent macias ges of enteritis. There is no evidence of pneumoperitoneum or free fluid. A percutaneous gastrostomy tube is present with the tip in the stomach. The abdominal aorta is normal caliber. There is no evidence of intra-abdominal adenopathy. The urinary bladder is decompressed around a balloon catheter. There is the appearance of increased t hickness of the urinary bladder wall and stranding of the perivesicular fat. The uterus and adnexa are unremarkable. The bony structures are notable for levocurvature of the lumbar spine, grade 1 anterolisthesis L4 on L5, multiple level degenerative facet change in the lumbar spine and multiple level canal stenosis in the lumbar spine. IMPRESSION: 1. Appearance of increased thickness of the urinary bladder wall with perivesicular inflammatory macias ge corresponding to the patient's history of cystitis. A bladder catheter is demonstrated within the urinary bladder. 2. Moderate to marked distention of the gallbladder which contains a gallstone. 3. Nonobstructing stone left renal pelvis. No evidence of hydronephrosis. 4. Findings suggestive of enteritis. There is no definite evidence of bowel wall thickening or adriane lic inflammatory change to suggest the presence of colitis. 5. Percutaneous gastrostomy tube with tip in the stomach. 6. Spondylitic change lumbar spine with levocurvature and canal stenosis. This document is electronically signed by Nicole Lomas MD., August 02 2018 06:03:40 PM ET
[2018-08-03] MEDS ORDERED: NACL 0.9% 250ML 250 ML IV ONE (02:45)
[2018-08-03] MEDS: TYLENOL PO PRN (03:02)
[2018-08-03] MEDS ORDERED: NACL 0.9% 1000 ML 1,000 ML IV ONE (03:41)
[2018-08-03] MEDS: HumuLIN R SUB-Q SCH ×5 (09:23→23:43)
[2018-08-03] MEDS: ROCEPHIN/NS 1 GM/50 ML 1 GM/50 ML BAG IV SCH (09:23)
[2018-08-03] MEDS: NACL 0.9% 1000 ML 1,000 ML IV SCH ×2 (09:30→23:42)
--- NOTE | 2018-08-03 11:50 | Progress Note ---
Assessment and Plan Assessment and plan: Patient is a 73 yo woman from [facility] with a history of PEG tube, Dementia, IDDM, hypertension and PD who presented to [facility] with vaginal bleeding, Pelvic ultrasound was performed with minimally thickened endometrium of 6-7mm and findings of small leiomyoma. The abdominal ultrasound was concerning for a possible mass in the urinary bladder. Upon placement of the victoria, findings of blood and particulate matter. 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 Follow-up on current diagnosis. Overnight uneventful. Patient is confused. Imaging, nursing note, chart, labs and old chart reviewed. at bedside. Hospitalist Physical - Physical exam Narrative exam: Gen: WDWN, NAD, Awake, Alert, Orientated x 1 HEENT: NCAT, EOMI, PERRL, OP Clear Neck: supple, no adenopathy, no thyromegaly, no JVD CVS/Heart: RRR, normal S1S2, pulses present bilaterally Chest/Lungs: CTA B, Symmetrical chest expansion, good air entry bilaterally GI/Abdomen: soft, PEG tube, good bowel sounds, no guarding or rebound /Bladder: no suprapubic tenderness, no CVA or paraspinal tenderness Extermity/Skin: no c/c/e, no obvious rash MSK: FROM x 4 Neuro: CN 2-12 grossly intact, no new focal deficits Psych: calm - Constitutional Vitals: Temp Pulse Resp BP Pulse Ox 99.0 F 105 H 18 91/51 96 08/03/18 07:10 08/03/18 07:10 08/03/18 07:10 08/03/18 07:10 08/03/18 07:10 General appearance: Present: no acute distress Results - Labs CBC & Chem 7: 08/02/18 13:33 08/01/18 15:42 Labs: Laboratory Last Values WBC 4.2 K/mm3 (4.5-11.0) L 08/01/18 15:42 RBC 4.63 M/mm3 (3.65-5.03) 08/01/18 15:42 Hgb 12.4 gm/dl (10.1-14.3) 08/02/18 13:33 Hct 38.7 % (30.3-42.9) 08/02/18 13:33 MCV 88 fl (79-97) 08/01/18 15:42 MCH 29 pg (28-32) 08/01/18 15:42 MCHC 33 % (30-34) 08/01/18 15:42 RDW 13.9 % (13.2-15.2) 08/01/18 15:42 Plt Count 233 K/mm3 (140-440) 08/01/18 15:42 Lymph % (Auto) 15.0 % (13.4-35.0) 08/01/18 15:42 [place] % (Auto) 4.3 % (0.0-7.3) 08/01/18 15:42 Eos % (Auto) 4.2 % (0.0-4.3) 08/01/18 15:42 Baso % (Auto) 0.2 % (0.0-1.8) 08/01/18 15:42 Lymph # 0.6 K/mm3 (1.2-5.4) L 08/01/18 15:42 [place] # 0.2 K/mm3 (0.0-0.8) 08/01/18 15:42 Eos # 0.2 K/mm3 (0.0-0.4) 08/01/18 15:42 Baso # 0.0 K/mm3 (0.0-0.1) 08/01/18 15:42 Seg Neutrophils % 76.3 % (40.0-70.0) H 08/01/18 15:42 Seg Neutrophils # 3.2 K/mm3 (1.8-7.7) 08/01/18 15:42 PT 14.5 Sec. (12.2-14.9) 08/01/18 15:42 INR 1.06 (0.87-1.13) 08/01/18 15:42 APTT 31.0 Sec. (24.2-36.6) 08/01/18 15:42 Sodium 143 mmol/L (137-145) 08/01/18 15:42 Potassium 4.1 mmol/L (3.6-5.0) 08/01/18 15:42 Chloride 105.7 mmol/L (98-107) 08/01/18 15:42 Carbon Dioxide 27 mmol/L (22-30) 08/01/18 15:42 Anion Gap 14 mmol/L 08/01/18 15:42 BUN 23 mg/dL (7-17) H 08/01/18 15:42 Creatinine 0.8 mg/dL (0.7-1.2) 08/01/18 15:42 Estimated GFR > 60 ml/min 08/01/18 15:42 BUN/Creatinine Ratio 29 % 08/01/18 15:42 Glucose 83 mg/dL (65-100) 08/01/18 15:42 POC Glucose 240 (70-105) H 08/03/18 11:19 Calcium 9.7 mg/dL (8.4-10.2) 08/01/18 15:42 Total Bilirubin 0.20 mg/dL (0.1-1.2) 08/01/18 15:42 AST 17 units/L (5-40) 08/01/18 15:42 ALT < 5 units/L (7-56) L 08/01/18 15:42 Alkaline Phosphatase 63 units/L (35-129) 08/01/18 15:42 Total Protein 7.0 g/dL (6.3-8.2) 08/01/18 15:42 Albumin 3.3 g/dL (3.9-5) L 08/01/18 15:42 Albumin/Globulin Ratio 0.9 % 08/01/18 15:42 Urine Color Red (Yellow) 08/01/18 17:11 Urine Turbidity Cloudy (Clear) 08/01/18 17:11 Urine pH 7.0 (5.0-7.0) 08/01/18 17:11 Ur Specific [place] 1.028 (1.003-1.030) 08/01/18 17:11 Urine Protein 100 mg/dl mg/dL (Negative) 08/01/18 17:11 Urine Glucose (UA) Neg mg/dL (Negative) 08/01/18 17:11 Urine Ketones Tr mg/dL (Negative) 08/01/18 17:11 Urine Blood Lg (Negative) 08/01/18 17:11 Urine Nitrite Neg (Negative) 08/01/18 17:11 Urine Bilirubin Neg (Negative) 08/01/18 17:11 Urine Urobilinogen < 2.0 mg/dL (<2.0) 08/01/18 17:11 Ur Leukocyte Esterase Mod (Negative) 08/01/18 17:11 Urine WBC (Auto) > 182.0 /HPF (0.0-6.0) H 08/01/18 17:11 Urine RBC (Auto) > 182.0 /HPF (0.0-6.0) 08/01/18 17:11 U Epithel Cells (Auto) 7.0 /HPF (0-13.0) 08/01/18 17:11 Active Medications - Current Medications Current Medications: Generic Name Dose Route Start Last Admin Trade Name Freq PRN Reason Stop Dose Admin Acetaminophen 650 mg 08/01/18 22:01 08/03/18 03:02 Tylenol PO 650 mg Q4H PRN Administration Fever >101 Lipase/Protease/Amylase 1 each 08/02/18 14:[address] 10,500 Unit FEEDTUBE PRN PRN For Clogged Feeding Tube Dextrose 50 ml 08/01/18 22:02 D50w (25gm) Syringe IV PRN PRN Hypoglycemia Sodium Chloride 1,000 mls @ 100 mls/hr 08/01/18 22:00 08/03/18 09:30 Nacl 0.9% 1000 Ml IV 100 mls/hr DIRECT DIANNE Administration Ceftriaxone Sodium 1 gm in 50 mls @ 100 mls/hr 08/02/18 10:00 08/03/18 09:23 Rocephin/Ns 1 Gm/50 Ml IV 100 mls/hr Q24HR DIANNE Administration Protocol Insulin Human Regular 0 units 08/02/18 07:30 08/03/18 09:23 Humulin R SUB-Q 2 units AC DIANNE Administration Protocol Insulin Human Regular 0 units 08/02/18 22:00 08/02/18 23:07 Humulin R SUB-Q 1 units QHS DIANNE Administration Protocol Morphine Sulfate 2 mg 08/01/18 22:00 Morphine IV Q4H PRN Pain, Moderate (4-6) Ondansetron HCl 4 mg 08/01/18 22:00 Zofran IV Q8H PRN Nausea And Vomiting Simple Syrup 15 ml 08/02/18 14:22 Simple Syrup FEEDTUBE PRN PRN Hypoglycemia Simple Syrup 30 ml 08/02/18 14:22 Simple Syrup FEEDTUBE PRN PRN Hypoglycemia Sodium Bicarbonate 325 mg 08/02/18 14:22 Sodium Bicarbonate FEEDTUBE PRN PRN For Clogged Feeding Tube Nutrition/Malnutrition Assess - Dietary Evaluation Nutrition/Malnutrition Findings: Nutrition Notes Start: 08/02/18 14:00 Freq: Status: Active Protocol: Document 08/02/18 14:00 (Rec: 08/02/18 14:07 [facility]-[id number]) Co-Sign 08/02/18 14:00 LP Nutrition Notes Need for Assessment generated from: MD Order,director emergency department Initial or Follow up Assessment Current Diagnosis Diabetes,Hypertension Other Pertinent Diagnosis Arthritis, anxiety disorder, depression, dementia, reflux disease, UTI Current Diet NPO Labs/Tests BUN: 23 POC: 178 Pertinent Medications D50W Height 5 ft 3 in Weight 71.6 kg [place] Body Weight (kg) 52.27 BMI 27.9 Weight Status Overweight Subjective/Other Information MD consult for Write/Manage TF . Observed patient in room. Pt states she's hungry. Pt was on glucerna before arrival while at [facility]. Pt was on glucerna 65ml/hr cyclic TF. Pt not able to tolerate full liquid diet. Burn Absent Trauma Absent #1 Nutrition Diagnosis Inadequate oral intake Etiology dementia and dysphagia As Evidenced by Signs and Symptoms Tube Feed regime at [facility] and choking on liquids during hospital Is patient on ventilator? No Is Patient Ambulatory and/or Out of Bed No REE-([facility]-confined to bed) 1422.492 Kcal/Kg value to use for calculation 25 Approximate Energy Requirements Using 1790 kcal/Kg Calculation Used for Recommendations Kcal/kg Additional Notes Protein: 86-107 g/day (1.2-1.5 g/kg) Fluid: 1 ml/kcal Nutrition Intervention Change Diet Order: Tube Feed Nutrition Support: Glucerna 1.2 @ 65ml/hr. Water flush 100 ml q 4 hr. Kcal 1,872 Protein (gm) 93 Fluid (mL) 1,255 Goal #1 TF tolerance Goal #2 Meet at least 75% of needs via TF Anticipated Discharge Needs: Tube Feed Follow-Up By: 08/04/18 Additional Comments F/U: New TF
--- NOTE | 2018-08-03 13:18 | Consultation ---
History of Present Illness - Reason for Consult Consult date: 08/03/18 UTI, Infected decubitus ulcer Requesting physician: NAYELY PENA - History of Present Illness This patient is a 73-year-old female with a past medical history of dementia, diabetes, hypertension, Parkinsons, contracted with minimal spontaneous movement and nonverbal, that presented [facility] from [facility] with complaints of vaginal bleeding. stated that she has had intermittent vaginal bleeding for the last 3 months. As a result, the [facility] discontinued patients blood thinners, however she has continued to have inte rmittent bleeding and was seen by [facility] on 07/14/18 but didn't have any vaginal bleeding on that visit. Pelvic ultrasound was performed and showed minimally thickened endometrium of 6-7mm and findings of small leiomyoma. On 07/31/18, she was diagnosed with a UTI at the [facility] and was started on antibiotics. An abdominal ultrasound was done and results were concerning for a possible mass in the urinary bladder..Patent presented in [facility] ED for perineal abscess, s/p I & D on 07/28/18. On admission WBC 4.2, Creatinine 0.8, Temperature 98, HR 87, BP 81/55. U/A with Pyuria, WBC >182, Moderate LE. Urine culture shows no growth. Review of systems unobtainable due to mental status Past History Social history: Medications and Allergies Allergies Allergy/AdvReac Type Severity Reaction Status Date / Time Sulfa (Sulfonamide Allergy Unknown Verified 02/18/15 16:50 Antibiotics) Home Medications Medication Instructions Recorded Confirmed Last Taken Type Carbidopa/Levodopa 25-100 [Sinemet 1 each PO TID 02/18/15 08/01/18 02/18/15 History 25/100] Docusate Sodium [Colace CAP] 100 mg PO DAILY 02/18/15 08/01/18 02/18/15 History Aspirin [Aspirin BABY CHEW TAB] 81 mg PO QDAY 08/01/18 08/01/18 Unknown History Glycerin/Propylene Glycol 1 drop OU BID 08/01/18 08/01/18 Unknown History [Artificial Tears Drops] Ibuprofen [Motrin] 800 mg FEEDTUBE DAILY 08/01/18 08/01/18 Unknown History Insulin Aspart [NovoLOG Flexpen] See Protocol SQ AC 08/01/18 08/01/18 Unknown History Insulin Detemir [Levemir Flextouch] 25 units SUB-Q QHS 08/01/18 08/01/18 Unknown History Insulin NPH/Regular [NovoLIN 70/30] 24 units SUB-Q BID 08/01/18 08/01/18 Unknown History Lisinopril [Zestril TAB] 2.5 mg PO QDAY 08/01/18 08/01/18 Unknown History Multivitamin Tab W-MINERAL 1 each PO DAILY 08/01/18 08/01/18 Unknown History [Multiple Vitamin/Mineral (Theragran M)] Nut.tx.gluc.intoler,Lac-Fr,Soy 65 ml FEEDTUBE CONT 08/01/18 08/01/18 Unknown History [Glucerna 1.5 Montrell] Polyethylene Glycol 3350 17 gm PO DAILY 08/01/18 08/01/18 Unknown History [Smoothlax] traMADol [Ultram] 50 mg FEEDTUBE Q6HR PRN 08/01/18 08/01/18 Unknown History Active Meds: Active Medications Acetaminophen (Tylenol) 650 mg PO Q4H PRN PRN Reason: Fever >101 Last Admin: 08/03/18 03:02 Dose: 650 mg Documented by: Lipase/Protease/Amylase (Clare Figueroa 10,500 Unit) 1 each FEEDTUBE PRN PRN PRN Reason: For Clogged Feeding Tube Dextrose (D50w (25gm) Syringe) 50 ml IV PRN PRN PRN Reason: Hypoglycemia Sodium Chloride (Nacl 0.9% 1000 Ml) 1,000 mls @ 100 mls/hr IV DIRECT DIANNE Last Admin: 08/03/18 09:30 Dose: 100 mls/hr Documented by: Ceftriaxone Sodium (Rocephin/Ns 1 Gm/50 Ml) 1 gm in 50 mls @ 100 mls/hr IV Q24HR DIANNE; Protocol Last Admin: 08/03/18 09:23 Dose: 100 mls/hr Documented by: Insulin Human Regular (Humulin R) 0 units SUB-Q AC DIANNE; Protocol Last Admin: 08/03/18 12:24 Dose: 2 units Documented by: Insulin Human Regular (Humulin R) 0 units SUB-Q QHS DIANNE; Protocol Last Admin: 08/02/18 23:07 Dose: 1 units Documented by: Morphine Sulfate (Morphine) 2 mg IV Q4H PRN PRN Reason: Pain, Moderate (4-6) Ondansetron HCl (Zofran) 4 mg IV Q8H PRN PRN Reason: Nausea And Vomiting Simple Syrup (Simple Syrup) 15 ml FEEDTUBE PRN PRN PRN Reason: Hypoglycemia Simple Syrup (Simple Syrup) 30 ml FEEDTUBE PRN PRN PRN Reason: Hypoglycemia Sodium Bicarbonate (Sodium Bicarbonate) 325 mg FEEDTUBE PRN PRN PRN Reason: For Clogged Feeding Tube Review of Systems ROS unobtainable: due to mental status Physical Examination - Physical Exam Narrative exam: Constitutional: Asleep, Difficult to arouse. No acute distress observed Head, Ears, Nose: Normocephalic, atraumatic. External ears, nose normal Eyes: Conjunctivae/corneas clear. No icterus. No ptosis. Neck: Supple, no meningeal signs Oral: unable to assess would not open mouth Cardiovascular: S1, S2 normal. Respiratory: Good air entry, clear to auscultation bilaterally GI: Soft, non-tender; bowel sounds normal. No peritoneal signs, +G-tube Musculoskeletal: No pedal edema, no cyanosis. Skin: No rash or abscess. Hem/Lymphatic: No palpable cervical or supraclavicular nodes. No lymphangitis Psych: unable to assess, asleep , difficult to arouse Neurological: Asleep, eyes open to tactile stimulation. Calm, nonverbal - Constitutional Vitals: Vital Signs Temp Pulse Resp BP Pulse Ox 99.0 F 105 H 18 91/51 96 08/03/18 07:10 08/03/18 07:10 08/03/18 07:10 08/03/18 07:10 08/03/18 10:00 Temperature -Last 24 Hours Temperature 99.0 F Temperature 99.2 F Temperature 101.6 F Temperature 98.0 F Results - Labs CBC & Chem 7: 08/02/18 13:33 08/01/18 15:42 Labs: Abnormal lab results 08/02/18 08/02/18 08/03/18 Range/Units 17:13 23:08 07:11 POC Glucose 180 H 161 H 225 H (70-105) 08/03/18 Range/Units 11:19 POC Glucose 240 H (70-105) - Imaging and Cardiology CT scan - pelvis: report reviewed ( Moderate to marked distention of the gallbladder which contains a gallstone. Appearance of increased thickness of the urinary bladder wall with perivesicular inflammatory change corresponding to the patient's history of cystitis. nonobstructing stone left renal pelvis. No evidence of hydronephrosis) Assessment and Plan Cultures: 08/01/18:Urine: no growth to date A/P: 73-year-old female with a past medical history of dementia, diabetes, hypertension, Parkinsons, contracted with minimal spontaneous movement and nonverbal, that presented [facility] with complaints of vaginal bleeding. stated that she has had intermittent vaginal bleeding for the last 3 months. As a result, the [facility] discontinued patients blood thinners, however she has continued to have intermittent bleeding and was seen by [facility] on 07/14/18 but didn't have any vaginal bleeding on that visit. Pelvic ultrasound was performed and showed minimally thickened endometrium of 6-7mm and findings of small leiomyoma. On 07/31/18, she was diagnosed with a UTI at the [facility] and was started on antibiotics. An abdominal ultrasound was done and results were concerning for a possible mass in the urinary bladder..Pateint presented in the ED for perineal abscess, s/p I & D on 07/28/18. Now with: 1. SIRS vs Sepis: not on admission, evidenced by Fever, Tachycardia and hypotension on 08/03/18. Etiology unclear, mulitfatorial - most likely UTI, +/- bladder mass, +/- unstageable sacral ulceration. U/A consistent with a UTI. Blood Cultures not drawn. Currently being treated with Ceftriaxone. 2. UTI: U/A with Pyuria WBC >182, Moderate LE. Urine culture shows no growth. Pelvic ultrasound shows Debris in the dependent portion of the urinary bladder versus mass in the posterior aspect of the urinary bladder. Urology wants outpatient evaluation. 3. Vaginal Bleeding: Transvaginal US: Small nodule upper uterine fundus may be a fibroid measuring 17 mm. The endometrium is homogenous. Endometrial thickness is 6.0 mm. CASH MANAGEMENT CLERK wants outpatient evaluation. 4. Perirectal surgical wound and Stage 2 Decubitus Ulcer: continue wound care. following. Plan: continue Ceftriaxone 1 gm IV every 24 hours f/u blood cultures f/u urine cultures f/u CXR CRP ordered f/u Surgical Consult Continue wound care CBC ordered for tomorrow d/w Dr. Heath Mariscal, [facility] M: [phone] O:[phone] :
--- NOTE | 2018-08-03 14:19 | Consultation ---
History of Present Illness Consult date: 08/03/18 Chief complaint: Sacral pressure ulcer - History of present illness History of present illness: 73 yo female with dementia, PD and Type 2 DM. Asked to see pt re a sacral decubitus. She has a PEG. Past History Past Medical History: diabetes, other (Dementia, PD) Social history: Medications and Allergies Allergies Allergy/AdvReac Type Severity Reaction Status Date / Time Sulfa (Sulfonamide Allergy Unknown Verified 02/18/15 16:50 Antibiotics) Home Medications Medication Instructions Recorded Confirmed Last Taken Type Carbidopa/Levodopa 25-100 [Sinemet 1 each PO TID 02/18/15 08/01/18 02/18/15 History 25/100] Docusate Sodium [Colace CAP] 100 mg PO DAILY 02/18/15 08/01/18 02/18/15 History Aspirin [Aspirin BABY CHEW TAB] 81 mg PO QDAY 08/01/18 08/01/18 Unknown History Glycerin/Propylene Glycol 1 drop OU BID 08/01/18 08/01/18 Unknown History [Artificial Tears Drops] Ibuprofen [Motrin] 800 mg FEEDTUBE DAILY 08/01/18 08/01/18 Unknown History Insulin Aspart [NovoLOG Flexpen] See Protocol SQ AC 08/01/18 08/01/18 Unknown History Insulin Detemir [Levemir Flextouch] 25 units SUB-Q QHS 08/01/18 08/01/18 Unknown History Insulin NPH/Regular [NovoLIN 70/30] 24 units SUB-Q BID 08/01/18 08/01/18 Unknown History Lisinopril [Zestril TAB] 2.5 mg PO QDAY 08/01/18 08/01/18 Unknown History Multivitamin Tab W-MINERAL 1 each PO DAILY 08/01/18 08/01/18 Unknown History [Multiple Vitamin/Mineral (Theragran M)] Nut.tx.gluc.intoler,Lac-Fr,Soy 65 ml FEEDTUBE CONT 08/01/18 08/01/18 Unknown History [Glucerna 1.5 Montrell] Polyethylene Glycol 3350 17 gm PO DAILY 08/01/18 08/01/18 Unknown History [Smoothlax] traMADol [Ultram] 50 mg FEEDTUBE Q6HR PRN 08/01/18 08/01/18 Unknown History Active Meds: Active Medications Acetaminophen (Tylenol) 650 mg PO Q4H PRN PRN Reason: Fever >101 Last Admin: 08/03/18 03:02 Dose: 650 mg Documented by: Lipase/Protease/Amylase (Clare Figueroa 10,500 Unit) 1 each FEEDTUBE PRN PRN PRN Reason: For Clogged Feeding Tube Dextrose (D50w (25gm) Syringe) 50 ml IV PRN PRN PRN Reason: Hypoglycemia Sodium Chloride (Nacl 0.9% 1000 Ml) 1,000 mls @ 100 mls/hr IV DIRECT DIANNE Last Admin: 08/03/18 09:30 Dose: 100 mls/hr Documented by: Ceftriaxone Sodium (Rocephin/Ns 1 Gm/50 Ml) 1 gm in 50 mls @ 100 mls/hr IV Q24HR DIANNE; Protocol Last Admin: 08/03/18 09:23 Dose: 100 mls/hr Documented by: Insulin Human Regular (Humulin R) 0 units SUB-Q AC DIANNE; Protocol Last Admin: 08/03/18 12:24 Dose: 2 units Documented by: Insulin Human Regular (Humulin R) 0 units SUB-Q QHS DIANNE; Protocol Last Admin: 08/02/18 23:07 Dose: 1 units Documented by: Morphine Sulfate (Morphine) 2 mg IV Q4H PRN PRN Reason: Pain, Moderate (4-6) Ondansetron HCl (Zofran) 4 mg IV Q8H PRN PRN Reason: Nausea And Vomiting Simple Syrup (Simple Syrup) 15 ml FEEDTUBE PRN PRN PRN Reason: Hypoglycemia Simple Syrup (Simple Syrup) 30 ml FEEDTUBE PRN PRN PRN Reason: Hypoglycemia Sodium Bicarbonate (Sodium Bicarbonate) 325 mg FEEDTUBE PRN PRN PRN Reason: For Clogged Feeding Tube Review of Systems ROS unobtainable: due to mental status Exam Vital Signs Temp Pulse Resp BP Pulse Ox 98 F 87 16 106/67 96 08/01/18 15:08 08/01/18 15:08 08/01/18 15:08 08/01/18 15:08 08/01/18 15:08 - General physical appearance Positive: well developed, well nourished, no distress - Eyes Positive: PERRL, normal occular movement - ENT Positive: normal pinna, normal nares, normal mucosa, no hearing loss, no congestion - Neck Positive: no masses, no bruits, trachea midline, no venous distension - Respiratory Positive: normal expansion, normal respiratory effort, clear to auscultation - Cardiovascular Rhythm: regular Heart Sounds: Present: S1 & S2. Absent: rub, click - Extremities Extremities: no ischemia, pulses symmetrical, No edema - Breasts Breasts: deferred - Abdomen Abdomen: Present: soft, bowel sounds normal. Absent: tender, distended Hernia: none - Genitourinary Female Genitourinary: deferred - Integumentary other (There is a 6 X 3 X 1.5 cm relatively clean, stage 2 sacral pressure ulcer.) - Neurologic Neurologic: other (Non-communicative) - Psychiatric Psychiatric: other (Non-communicative) Results - Labs 08/02/18 13:33 08/01/18 15:42 Abnormal lab results 08/02/18 08/02/18 08/03/18 Range/Units 17:13 23:08 07:11 POC Glucose 180 H 161 H 225 H (70-105) 08/03/18 Range/Units 11:19 POC Glucose 240 H (70-105) Assessment and Plan - Patient Problems (1) Pressure ulcer of sacral region, stage 2 Current Visit: Yes Status: Acute Plan to address problem: 1) Off loading 2) Intense nutritional support 3) Continue wound care per the wound care nurse 4) Pt can f/u in the Wound Clinic
[2018-08-04 01:04] LABS: Hematocrit 34.7 % (30.3-42.9); Hemoglobin 11.3 gm/dl (10.1-14.3); Mean Corpuscular HGB Conc 33 % (30-34); Mean Corpuscular Volume 90 fl (79-97); Platelet Count 189 K/mm3 (140-440); Red Blood Count 3.85 M/mm3 (3.65-5.03); Red Cell Distribution Width 15.1 % (13.2-15.2)
[2018-08-04 03:47] LABS: Total Cells Counted 100
[2018-08-04 03:48] LABS: Basophils % (Manual) 0 % (0.0-1.8); Monocytes % (Manual) 0 % (0.0-7.3); Platelet Estimate Consistent w Auto; RBC Morphology Normal
[2018-08-04] MEDS: NACL 0.9% 1000 ML 1,000 ML IV SCH ×2 (05:51→17:49)
--- NOTE | 2018-08-04 08:33 | XRay Report ---
CHEST 2 VIEWS INDICATION: Fever. COMPARISON: 02/18/2015 FINDINGS: Frontal and lateral chest radiographs demonstrate limited inspiration with mildly crowded lung markings centrally and slight right perihilar atelectasis. Otherwise clear lungs without pleural effusions or CHF. Grossly stable, slight exaggerated cardiomediastinal silhouette. Demineralized bones with various degenerative changes. CONCLUSION: Hypoinflation without acute significant chest process, as described. Thank you for the opportunity to participate in this patient's care.
[2018-08-04] MEDS: HumuLIN R SUB-Q SCH ×3 (09:07→16:18)
[2018-08-04] MEDS: ROCEPHIN/NS 1 GM/50 ML 1 GM/50 ML BAG IV SCH (09:08)
--- NOTE | 2018-08-04 11:46 | Progress Note ---
Assessment and Plan Assessment and plan: Patient is a 73 yo woman from [facility] with a history of PEG tube, Dementia, IDDM, hypertension and PD who presented to [facility] with vaginal bleeding, Pelvic ultrasound was performed with minimally thickened endometrium of 6-7mm and findings of small leiomyoma. The abdominal ultrasound was concerning for a possible mass in the urinary bladder. Upon placement of the victoria, findings of blood and particulate matter. Patient was just seen in ED for perineal abscess s/p I-n-D on 07/28/18 Vaginal bleeding: lathe set up person wants outpatient evaluation Bladder mass: Urology wants outpatient evaluation UTI: treated with abx, urine culture negative Fevers: Order blood cultures and cxr, continue empiric iv rocephin, consulted ID Unstageable sacral ulcer: wound care is following, consulted General Surgeon DVT prophylaxis SCD DNR per Disposition: continue inpatient care, back to [facility] once work up for Fever finished by ID History Interval history: Patient was seen and examined. Follow-up on current diagnosis. Overnight uneventful. Patient is confused. Imaging, nursing note, chart, labs and old chart reviewed. at bedside. Hospitalist Physical - Physical exam Narrative exam: Gen: WDWN, NAD, Awake, Alert, Orientated x 1 HEENT: NCAT, EOMI, PERRL, OP Clear Neck: supple, no adenopathy, no thyromegaly, no JVD CVS/Heart: RRR, normal S1S2, pulses present bilaterally Chest/Lungs: CTA B, Symmetrical chest expansion, good air entry bilaterally GI/Abdomen: soft, PEG tube, good bowel sounds, no guarding or rebound /Bladder: no suprapubic tenderness, no CVA or paraspinal tenderness Extermity/Skin: no c/c/e, no obvious rash MSK: FROM x 4 Neuro: CN 2-12 grossly intact, no new focal deficits Psych: calm - Constitutional Vitals: Temp Pulse Resp BP Pulse Ox 99.9 F H 95 H 21 101/47 95 08/04/18 07:55 08/04/18 10:00 08/04/18 10:00 08/04/18 07:55 08/04/18 10:00 General appearance: Present: no acute distress Results - Labs CBC & Chem 7: 08/04/18 00:42 08/01/18 15:42 Labs: Laboratory Last Values WBC 11.9 K/mm3 (4.5-11.0) H 08/04/18 00:42 RBC 3.85 M/mm3 (3.65-5.03) 08/04/18 00:42 Hgb 11.3 gm/dl (10.1-14.3) 08/04/18 00:42 Hct 34.7 % (30.3-42.9) 08/04/18 00:42 MCV 90 fl (79-97) 08/04/18 00:42 MCH 29 pg (28-32) 08/04/18 00:42 MCHC 33 % (30-34) 08/04/18 00:42 RDW 15.1 % (13.2-15.2) 08/04/18 00:42 Plt Count 189 K/mm3 (140-440) 08/04/18 00:42 Lymph % (Auto) 15.0 % (13.4-35.0) 08/01/18 15:42 [place] % (Auto) 4.3 % (0.0-7.3) 08/01/18 15:42 Eos % (Auto) 4.2 % (0.0-4.3) 08/01/18 15:42 Baso % (Auto) 0.2 % (0.0-1.8) 08/01/18 15:42 Lymph # 0.6 K/mm3 (1.2-5.4) L 08/01/18 15:42 [place] # 0.2 K/mm3 (0.0-0.8) 08/01/18 15:42 Eos # 0.2 K/mm3 (0.0-0.4) 08/01/18 15:42 Baso # 0.0 K/mm3 (0.0-0.1) 08/01/18 15:42 Add Manual Diff Complete 08/04/18 00:42 Total Counted 100 08/04/18 00:42 Seg Neutrophils % [employer] 08/04/18 00:42 Seg Neuts % (Manual) 93.0 % (40.0-70.0) H 08/04/18 00:42 Band Neutrophils % 0 % 08/04/18 00:42 Lymphocytes % (Manual) 3.0 % (13.4-35.0) L 08/04/18 00:42 Reactive Lymphs % (Man) 0 % 08/04/18 00:42 Monocytes % (Manual) 0 % (0.0-7.3) 08/04/18 00:42 Eosinophils % (Manual) 4.0 % (0.0-4.3) 08/04/18 00:42 Basophils % (Manual) 0 % (0.0-1.8) 08/04/18 00:42 Metamyelocytes % 0 % 08/04/18 00:42 Myelocytes % 0 % 08/04/18 00:42 Promyelocytes % 0 % 08/04/18 00:42 Blast Cells % 0 % 08/04/18 00:42 Nucleated RBC % Not Reportable 08/04/18 00:42 Seg Neutrophils # 3.2 K/mm3 (1.8-7.7) 08/01/18 15:42 Seg Neutrophils # Man 11.1 K/mm3 (1.8-7.7) H 08/04/18 00:42 Band Neutrophils # 0.0 K/mm3 08/04/18 00:42 Lymphocytes # (Manual) 0.4 K/mm3 (1.2-5.4) L 08/04/18 00:42 Abs React Lymphs (Man) 0.0 K/mm3 08/04/18 00:42 Monocytes # (Manual) 0.0 K/mm3 (0.0-0.8) 08/04/18 00:42 Eosinophils # (Manual) 0.5 K/mm3 (0.0-0.4) H 08/04/18 00:42 Basophils # (Manual) 0.0 K/mm3 (0.0-0.1) 08/04/18 00:42 Metamyelocytes # 0.0 K/mm3 08/04/18 00:42 Myelocytes # 0.0 K/mm3 08/04/18 00:42 Promyelocytes # 0.0 K/mm3 08/04/18 00:42 Blast Cells # 0.0 K/mm3 08/04/18 00:42 WBC Morphology Not Reportable 08/04/18 00:42 Hypersegmented Neuts Not Reportable 08/04/18 00:42 Hyposegmented Neuts Not Reportable 08/04/18 00:42 Hypogranular Neuts Not Reportable 08/04/18 00:42 Smudge Cells Not Reportable 08/04/18 00:42 Toxic Granulation Not Reportable 08/04/18 00:42 Toxic Vacuolation Not Reportable 08/04/18 00:42 Dohle Bodies Not Reportable 08/04/18 00:42 [place] Anomaly Not Reportable 08/04/18 00:42 Janna Rods Not Reportable 08/04/18 00:42 Platelet Estimate Consistent w auto 08/04/18 00:42 Clumped Platelets Not Reportable 08/04/18 00:42 Plt Clumps, EDTA Not Reportable 08/04/18 00:42 Large Platelets Not Reportable 08/04/18 00:42 Giant Platelets Not Reportable 08/04/18 00:42 Platelet Satelliting Not Reportable 08/04/18 00:42 Plt Morphology Comment Not Reportable 08/04/18 00:42 RBC Morphology Normal 08/04/18 00:42 Dimorphic RBCs Not Reportable 08/04/18 00:42 Polychromasia Not Reportable 08/04/18 00:42 Hypochromasia Not Reportable 08/04/18 00:42 Poikilocytosis Not Reportable 08/04/18 00:42 Anisocytosis Not Reportable 08/04/18 00:42 Microcytosis Not Reportable 08/04/18 00:42 Macrocytosis Not Reportable 08/04/18 00:42 Spherocytes Not Reportable 08/04/18 00:42 Pappenheimer Bodies Not Reportable 08/04/18 00:42 Sickle Cells Not Reportable 08/04/18 00:42 Target Cells Not Reportable 08/04/18 00:42 Tear Drop Cells Not Reportable 08/04/18 00:42 Ovalocytes Not Reportable 08/04/18 00:42 Helmet Cells Not Reportable 08/04/18 00:42 [place] Bodies Not Reportable 08/04/18 00:42 [place] Rings Not Reportable 08/04/18 00:42 [place] Cells Not Reportable 08/04/18 00:42 Bite Cells Not Reportable 08/04/18 00:42 Crenated Cell Not Reportable 08/04/18 00:42 Elliptocytes Not Reportable 08/04/18 00:42 Acanthocytes (Spur) Not Reportable 08/04/18 00:42 Rouleaux Not Reportable 08/04/18 00:42 Hemoglobin C Crystals Not Reportable 08/04/18 00:42 Schistocytes Not Reportable 08/04/18 00:42 Malaria parasites Not Reportable 08/04/18 00:42 Terry Bodies Not Reportable 08/04/18 00:42 Hem Pathologist Commnt No 08/04/18 00:42 PT 14.5 Sec. (12.2-14.9) 08/01/18 15:42 INR 1.06 (0.87-1.13) 08/01/18 15:42 APTT 31.0 Sec. (24.2-36.6) 08/01/18 15:42 Sodium 143 mmol/L (137-145) 08/01/18 15:42 Potassium 4.1 mmol/L (3.6-5.0) 08/01/18 15:42 Chloride 105.7 mmol/L (98-107) 08/01/18 15:42 Carbon Dioxide 27 mmol/L (22-30) 08/01/18 15:42 Anion Gap 14 mmol/L 08/01/18 15:42 BUN 23 mg/dL (7-17) H 08/01/18 15:42 Creatinine 0.8 mg/dL (0.7-1.2) 08/01/18 15:42 Estimated GFR > 60 ml/min 08/01/18 15:42 BUN/Creatinine Ratio 29 % 08/01/18 15:42 Glucose 83 mg/dL (65-100) 08/01/18 15:42 POC Glucose 191 (70-105) H 08/04/18 09:09 Calcium 9.7 mg/dL (8.4-10.2) 08/01/18 15:42 Total Bilirubin 0.20 mg/dL (0.1-1.2) 08/01/18 15:42 AST 17 units/L (5-40) 08/01/18 15:42 ALT < 5 units/L (7-56) L 08/01/18 15:42 Alkaline Phosphatase 63 units/L (35-129) 08/01/18 15:42 C-Reactive Protein 9.20 mg/dL (0.00-1.30) H 08/04/18 00:42 Total Protein 7.0 g/dL (6.3-8.2) 08/01/18 15:42 Albumin 3.3 g/dL (3.9-5) L 08/01/18 15:42 Albumin/Globulin Ratio 0.9 % 08/01/18 15:42 Urine Color Red (Yellow) 08/01/18 17:11 Urine Turbidity Cloudy (Clear) 08/01/18 17:11 Urine pH 7.0 (5.0-7.0) 08/01/18 17:11 Ur Specific [place] 1.028 (1.003-1.030) 08/01/18 17:11 Urine Protein 100 mg/dl mg/dL (Negative) 08/01/18 17:11 Urine Glucose (UA) Neg mg/dL (Negative) 08/01/18 17:11 Urine Ketones Tr mg/dL (Negative) 08/01/18 17:11 Urine Blood Lg (Negative) 08/01/18 17:11 Urine Nitrite Neg (Negative) 08/01/18 17:11 Urine Bilirubin Neg (Negative) 08/01/18 17:11 Urine Urobilinogen < 2.0 mg/dL (<2.0) 08/01/18 17:11 Ur Leukocyte Esterase Mod (Negative) 08/01/18 17:11 Urine WBC (Auto) > 182.0 /HPF (0.0-6.0) H 08/01/18 17:11 Urine RBC (Auto) > 182.0 /HPF (0.0-6.0) 08/01/18 17:11 U Epithel Cells (Auto) 7.0 /HPF (0-13.0) 08/01/18 17:11 Active Medications - Current Medications Current Medications: Generic Name Dose Route Start Last Admin Trade Name Freq PRN Reason Stop Dose Admin Acetaminophen 650 mg 08/01/18 22:01 08/03/18 03:02 Tylenol PO 650 mg Q4H PRN Administration Fever >101 Lipase/Protease/Amylase 1 each 08/02/18 14:22 Pancreaze 10,500 Unit FEEDTUBE PRN PRN For Clogged Feeding Tube Dextrose 50 ml 08/01/18 22:02 D50w (25gm) Syringe IV PRN PRN Hypoglycemia Sodium Chloride 1,000 mls @ 100 mls/hr 08/01/18 22:00 08/04/18 05:51 Nacl 0.9% 1000 Ml IV 100 mls/hr DIRECT DIANNE Administration Ceftriaxone Sodium 1 gm in 50 mls @ 100 mls/hr 08/02/18 10:00 08/04/18 09:08 Rocephin/Ns 1 Gm/50 Ml IV 100 mls/hr Q24HR DIANNE Administration Protocol Insulin Human Regular 0 units 08/02/18 07:30 08/04/18 09:07 Humulin R SUB-Q 1 units AC DIANNE Administration Protocol Insulin Human Regular 0 units 08/02/18 22:00 08/03/18 23:43 Humulin R SUB-Q 2 units QHS DIANNE Administration Protocol Morphine Sulfate 2 mg 08/01/18 22:00 Morphine IV Q4H PRN Pain, Moderate (4-6) Ondansetron HCl 4 mg 08/01/18 22:00 Zofran IV Q8H PRN Nausea And Vomiting Simple Syrup 15 ml 08/02/18 14:22 Simple Syrup FEEDTUBE PRN PRN Hypoglycemia Simple Syrup 30 ml 08/02/18 14:22 Simple Syrup FEEDTUBE PRN PRN Hypoglycemia Sodium Bicarbonate 325 mg 08/02/18 14:22 Sodium Bicarbonate FEEDTUBE PRN PRN For Clogged Feeding Tube Nutrition/Malnutrition Assess - Dietary Evaluation Nutrition/Malnutrition Findings: Nutrition Notes Start: 08/02/18 14:00 Freq: Status: Active Protocol: Document 08/02/18 14:00 (Rec: 08/02/18 14:07 [id number]) Co-Sign 08/02/18 14:00 LP Nutrition Notes Need for Assessment generated from: MD Order,enrichment specialist Initial or Follow up Assessment Current Diagnosis Diabetes,Hypertension Other Pertinent Diagnosis Arthritis, anxiety disorder, depression, dementia, reflux disease, UTI Current Diet NPO Labs/Tests BUN: 23 POC: 178 Pertinent Medications D50W Height 5 ft 3 in Weight 71.6 kg [place] Body Weight (kg) 52.27 BMI 27.9 Weight Status Overweight Subjective/Other Information MD consult for Write/Manage TF . Observed patient in room. Pt states she's hungry. Pt was on glucerna before arrival while at [facility]. Pt was on glucerna 65ml/hr cyclic TF. Pt not able to tolerate full liquid diet. Burn Absent Trauma Absent #1 Nutrition Diagnosis Inadequate oral intake Etiology dementia and dysphagia As Evidenced by Signs and Symptoms Tube Feed regime at [facility] and choking on liquids during hospital Is patient on ventilator? No Is Patient Ambulatory and/or Out of Bed No REE-([facility]-confined to bed) 1422.492 Kcal/Kg value to use for calculation 25 Approximate Energy Requirements Using 1790 kcal/Kg Calculation Used for Recommendations Kcal/kg Additional Notes Protein: 86-107 g/day (1.2-1.5 g/kg) Fluid: 1 ml/kcal Nutrition Intervention Change Diet Order: Tube Feed Nutrition Support: Glucerna 1.2 @ 65ml/hr. Water flush 100 ml q 4 hr. Kcal 1,872 Protein (gm) 93 Fluid (mL) 1,255 Goal #1 TF tolerance Goal #2 Meet at least 75% of needs via TF Anticipated Discharge Needs: Tube Feed Follow-Up By: 08/04/18 Additional Comments F/U: New TF
--- NOTE | 2018-08-04 16:02 | Progress Note ---
Assessment and Plan Cultures: 08/01/18:Urine: no growth to date 08/03/18: no growth to date A/P: 73-year-old female with a past medical history of dementia, diabetes, hypertension, Parkinsons, contracted with minimal spontaneous movement and nonverbal, that presented [facility] the ED [facility] with complaints of vaginal bleeding. On 07/31/18, she was diagnosed with a UTI at the [facility] and was started on antibiotics. An abdominal ultrasound was done and results were concerning for a possible mass in the urinary bladder..Pateint presented in the ED for perineal abscess, s/p I & D on 07/28/18. Now with: 1. SIRS vs Sepis: not on admission, evidenced by Fever, Tachycardia and hypotension on 08/03/18. Improving. Etiology unclear, multi-factorial - most likely UTI, +/- bladder mass, +/- unstageable sacral ulceration. U/A consistent with a UTI. Blood Cultures not drawn. Currently being treated with Ceftriaxone. CXR no consolidation. CRP 9. 2. UTI: U/A with Pyuria WBC >182, Moderate LE. Urine culture shows no growth. Pelvic ultrasound shows debris in the dependent portion of the urinary bladder versus mass in the posterior aspect of the urinary bladder. Urology wants outpatient evaluation. 3. Vaginal Bleeding: Transvaginal US: Small nodule upper uterine fundus may be a fibroid measuring 17 mm. The endometrium is homogenous. Endometrial thickness is 6.0 mm. FLY FISHING GUIDE wants outpatient evaluation. 4. Perirectal surgical wound and Stage 2 Decubitus Ulcer: continue wound care. following. Plan: continue Ceftriaxone 1 gm IV every 24 hours D 2 of 5 f/u blood cultures f/u urine cultures Deedee Bashir MD Infectious Diseases Revenue Agent [facility] M [phone] O [phone] Subjective Date of service: 08/04/18 Principal diagnosis: hematuria uti Interval history: Feels better, talking, no pain. No fever. Objective - Exam Narrative Exam: Constitutional: alert talking NAD pleasant Head, Ears, Nose: Normocephalic, atraumatic. External ears, nose normal Eyes: Conjunctivae/corneas clear. No icterus. No ptosis. Neck: Supple, no meningeal signs Oral: unable to assess would not open mouth Cardiovascular: RRR Respiratory: Good air entry, clear to auscultation bilaterally GI: Soft, non-tender; bowel sounds normal. No peritoneal signs, +G-tube Musculoskeletal: No pedal edema, no cyanosis. Skin: No rash or abscess. Hem/Lymphatic: No palpable cervical or supraclavicular nodes. No lymphangitis Psych: unable to assess, asleep , difficult to arouse Neurological: alert follows command - Constitutional Vitals: Vital Signs Temp Pulse Resp BP Pulse Ox 98.3 F 94 H 20 115/56 96 08/04/18 14:37 08/04/18 14:37 08/04/18 14:37 08/04/18 14:37 08/04/18 14:37 Temperature -Last 24 Hours Temperature 98.3 F Temperature 98.6 F Temperature 99.9 F Temperature 99.2 F Temperature 99.4 F - Labs CBC & Chem 7: 08/04/18 00:42 08/01/18 15:42 Labs: Abnormal lab results 08/03/18 08/04/18 08/04/18 Range/Units 16:35 00:32 00:42 WBC (4.5-11.0) K/mm3 Seg Neuts % (Manual) (40.0-70.0) % Lymphocytes % (Manual) (13.4-35.0) % Seg Neutrophils # Man (1.8-7.7) K/mm3 Lymphocytes # (Manual) (1.2-5.4) K/mm3 Eosinophils # (Manual) (0.0-0.4) K/mm3 POC Glucose 246 H 224 H (70-105) C-Reactive Protein 9.20 H (0.00-1.30) mg/dL 08/04/18 08/04/18 08/04/18 Range/Units 00:42 06:27 09:09 WBC 11.9 H (4.5-11.0) K/mm3 Seg Neuts % (Manual) 93.0 H (40.0-70.0) % Lymphocytes % (Manual) 3.0 L (13.4-35.0) % Seg Neutrophils # Man 11.1 H (1.8-7.7) K/mm3 Lymphocytes # (Manual) 0.4 L (1.2-5.4) K/mm3 Eosinophils # (Manual) 0.5 H (0.0-0.4) K/mm3 POC Glucose 146 H 191 H (70-105) C-Reactive Protein (0.00-1.30) mg/dL 08/04/18 Range/Units 12:03 WBC (4.5-11.0) K/mm3 Seg Neuts % (Manual) (40.0-70.0) % Lymphocytes % (Manual) (13.4-35.0) % Seg Neutrophils # Man (1.8-7.7) K/mm3 Lymphocytes # (Manual) (1.2-5.4) K/mm3 Eosinophils # (Manual) (0.0-0.4) K/mm3 POC Glucose 184 H (70-105) C-Reactive Protein (0.00-1.30) mg/dL
[2018-08-05] MEDS: HumuLIN R SUB-Q SCH ×4 (09:13→23:10)
[2018-08-05] MEDS: ROCEPHIN/NS 1 GM/50 ML 1 GM/50 ML BAG IV SCH (09:45)
--- NOTE | 2018-08-05 14:50 | Progress Note ---
Assessment and Plan Assessment and plan: Patient is a 73 yo woman from [facility] with a history of PEG tube, Dementia, IDDM, hypertension and PD who presented to [facility] with vaginal bleeding, Pelvic ultrasound was performed with minimally thickened endometrium of 6-7mm and findings of small leiomyoma. The abdominal ultrasound was concerning for a possible mass in the urinary bladder. Upon placement of the victoria, findings of blood and particulate matter. 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 Follow-up on current diagnosis. Overnight uneventful. Patient is confused. Imaging, nursing note, chart, labs and old chart reviewed. at bedside. Hospitalist Physical - Physical exam Narrative exam: Gen: WDWN, NAD, Awake, Alert, Orientated x 1 HEENT: NCAT, EOMI, PERRL, OP Clear Neck: supple, no adenopathy, no thyromegaly, no JVD CVS/Heart: RRR, normal S1S2, pulses present bilaterally Chest/Lungs: CTA B, Symmetrical chest expansion, good air entry bilaterally GI/Abdomen: soft, PEG tube, good bowel sounds, no guarding or rebound /Bladder: no suprapubic tenderness, no CVA or paraspinal tenderness Extermity/Skin: no c/c/e, no obvious rash MSK: FROM x 4 Neuro: CN 2-12 grossly intact, no new focal deficits Psych: calm - Constitutional Vitals: Temp Pulse Resp BP Pulse Ox 98.0 F 93 H 18 136/69 98 08/05/18 07:50 08/05/18 07:50 08/05/18 07:50 08/05/18 07:50 08/05/18 07:50 General appearance: Present: no acute distress Results - Labs CBC & Chem 7: 08/04/18 00:42 08/01/18 15:42 Labs: Laboratory Last Values WBC 11.9 K/mm3 (4.5-11.0) H 08/04/18 00:42 RBC 3.85 M/mm3 (3.65-5.03) 08/04/18 00:42 Hgb 11.3 gm/dl (10.1-14.3) 08/04/18 00:42 Hct 34.7 % (30.3-42.9) 08/04/18 00:42 MCV 90 fl (79-97) 08/04/18 00:42 MCH 29 pg (28-32) 08/04/18 00:42 MCHC 33 % (30-34) 08/04/18 00:42 RDW 15.1 % (13.2-15.2) 08/04/18 00:42 Plt Count 189 K/mm3 (140-440) 08/04/18 00:42 Lymph % (Auto) 15.0 % (13.4-35.0) 08/01/18 15:42 [place] % (Auto) 4.3 % (0.0-7.3) 08/01/18 15:42 Eos % (Auto) 4.2 % (0.0-4.3) 08/01/18 15:42 Baso % (Auto) 0.2 % (0.0-1.8) 08/01/18 15:42 Lymph # 0.6 K/mm3 (1.2-5.4) L 08/01/18 15:42 [place] # 0.2 K/mm3 (0.0-0.8) 08/01/18 15:42 Eos # 0.2 K/mm3 (0.0-0.4) 08/01/18 15:42 Baso # 0.0 K/mm3 (0.0-0.1) 08/01/18 15:42 Add Manual Diff Complete 08/04/18 00:42 Total Counted 100 08/04/18 00:42 Seg Neutrophils % Captain Waiter/Waitress 08/04/18 00:42 Seg Neuts % (Manual) 93.0 % (40.0-70.0) H 08/04/18 00:42 Band Neutrophils % 0 % 08/04/18 00:42 Lymphocytes % (Manual) 3.0 % (13.4-35.0) L 08/04/18 00:42 Reactive Lymphs % (Man) 0 % 08/04/18 00:42 Monocytes % (Manual) 0 % (0.0-7.3) 08/04/18 00:42 Eosinophils % (Manual) 4.0 % (0.0-4.3) 08/04/18 00:42 Basophils % (Manual) 0 % (0.0-1.8) 08/04/18 00:42 Metamyelocytes % 0 % 08/04/18 00:42 Myelocytes % 0 % 08/04/18 00:42 Promyelocytes % 0 % 08/04/18 00:42 Blast Cells % 0 % 08/04/18 00:42 Nucleated RBC % Not Reportable 08/04/18 00:42 Seg Neutrophils # 3.2 K/mm3 (1.8-7.7) 08/01/18 15:42 Seg Neutrophils # Man 11.1 K/mm3 (1.8-7.7) H 08/04/18 00:42 Band Neutrophils # 0.0 K/mm3 08/04/18 00:42 Lymphocytes # (Manual) 0.4 K/mm3 (1.2-5.4) L 08/04/18 00:42 Abs React Lymphs (Man) 0.0 K/mm3 08/04/18 00:42 Monocytes # (Manual) 0.0 K/mm3 (0.0-0.8) 08/04/18 00:42 Eosinophils # (Manual) 0.5 K/mm3 (0.0-0.4) H 08/04/18 00:42 Basophils # (Manual) 0.0 K/mm3 (0.0-0.1) 08/04/18 00:42 Metamyelocytes # 0.0 K/mm3 08/04/18 00:42 Myelocytes # 0.0 K/mm3 08/04/18 00:42 Promyelocytes # 0.0 K/mm3 08/04/18 00:42 Blast Cells # 0.0 K/mm3 08/04/18 00:42 WBC Morphology Not Reportable 08/04/18 00:42 Hypersegmented Neuts Not Reportable 08/04/18 00:42 Hyposegmented Neuts Not Reportable 08/04/18 00:42 Hypogranular Neuts Not Reportable 08/04/18 00:42 Smudge Cells Not Reportable 08/04/18 00:42 Toxic Granulation Not Reportable 08/04/18 00:42 Toxic Vacuolation Not Reportable 08/04/18 00:42 Dohle Bodies Not Reportable 08/04/18 00:42 Pelger-Huet Anomaly Not Reportable 08/04/18 00:42 Janna Rods Not Reportable 08/04/18 00:42 Platelet Estimate Consistent w auto 08/04/18 00:42 Clumped Platelets Not Reportable 08/04/18 00:42 Plt Clumps, EDTA Not Reportable 08/04/18 00:42 Large Platelets Not Reportable 08/04/18 00:42 Giant Platelets Not Reportable 08/04/18 00:42 Platelet Satelliting Not Reportable 08/04/18 00:42 Plt Morphology Comment Not Reportable 08/04/18 00:42 RBC Morphology Normal 08/04/18 00:42 Dimorphic RBCs Not Reportable 08/04/18 00:42 Polychromasia Not Reportable 08/04/18 00:42 Hypochromasia Not Reportable 08/04/18 00:42 Poikilocytosis Not Reportable 08/04/18 00:42 Anisocytosis Not Reportable 08/04/18 00:42 Microcytosis Not Reportable 08/04/18 00:42 Macrocytosis Not Reportable 08/04/18 00:42 Spherocytes Not Reportable 08/04/18 00:42 Pappenheimer Bodies Not Reportable 08/04/18 00:42 Sickle Cells Not Reportable 08/04/18 00:42 Target Cells Not Reportable 08/04/18 00:42 Tear Drop Cells Not Reportable 08/04/18 00:42 Ovalocytes Not Reportable 08/04/18 00:42 Helmet Cells Not Reportable 08/04/18 00:42 [place] Bodies Not Reportable 08/04/18 00:42 [place] Rings Not Reportable 08/04/18 00:42 [place] Cells Not Reportable 08/04/18 00:42 Bite Cells Not Reportable 08/04/18 00:42 Crenated Cell Not Reportable 08/04/18 00:42 Elliptocytes Not Reportable 08/04/18 00:42 Acanthocytes (Spur) Not Reportable 08/04/18 00:42 Rouleaux Not Reportable 08/04/18 00:42 Hemoglobin C Crystals Not Reportable 08/04/18 00:42 Schistocytes Not Reportable 08/04/18 00:42 Malaria parasites Not Reportable 08/04/18 00:42 Terry Bodies Not Reportable 08/04/18 00:42 Hem Pathologist Commnt No 08/04/18 00:42 PT 14.5 Sec. (12.2-14.9) 08/01/18 15:42 INR 1.06 (0.87-1.13) 08/01/18 15:42 APTT 31.0 Sec. (24.2-36.6) 08/01/18 15:42 Sodium 143 mmol/L (137-145) 08/01/18 15:42 Potassium 4.1 mmol/L (3.6-5.0) 08/01/18 15:42 Chloride 105.7 mmol/L (98-107) 08/01/18 15:42 Carbon Dioxide 27 mmol/L (22-30) 08/01/18 15:42 Anion Gap 14 mmol/L 08/01/18 15:42 BUN 23 mg/dL (7-17) H 08/01/18 15:42 Creatinine 0.8 mg/dL (0.7-1.2) 08/01/18 15:42 Estimated GFR > 60 ml/min 08/01/18 15:42 BUN/Creatinine Ratio 29 % 08/01/18 15:42 Glucose 83 mg/dL (65-100) 08/01/18 15:42 POC Glucose 223 (70-105) H 08/05/18 11:40 Calcium 9.7 mg/dL (8.4-10.2) 08/01/18 15:42 Total Bilirubin 0.20 mg/dL (0.1-1.2) 08/01/18 15:42 AST 17 units/L (5-40) 08/01/18 15:42 ALT < 5 units/L (7-56) L 08/01/18 15:42 Alkaline Phosphatase 63 units/L (35-129) 08/01/18 15:42 C-Reactive Protein 9.20 mg/dL (0.00-1.30) H 08/04/18 00:42 Total Protein 7.0 g/dL (6.3-8.2) 08/01/18 15:42 Albumin 3.3 g/dL (3.9-5) L 08/01/18 15:42 Albumin/Globulin Ratio 0.9 % 08/01/18 15:42 Urine Color Red (Yellow) 08/01/18 17:11 Urine Turbidity Cloudy (Clear) 08/01/18 17:11 Urine pH 7.0 (5.0-7.0) 08/01/18 17:11 Ur Specific [place] 1.028 (1.003-1.030) 08/01/18 17:11 Urine Protein 100 mg/dl mg/dL (Negative) 08/01/18 17:11 Urine Glucose (UA) Neg mg/dL (Negative) 08/01/18 17:11 Urine Ketones Tr mg/dL (Negative) 08/01/18 17:11 Urine Blood Lg (Negative) 08/01/18 17:11 Urine Nitrite Neg (Negative) 08/01/18 17:11 Urine Bilirubin Neg (Negative) 08/01/18 17:11 Urine Urobilinogen < 2.0 mg/dL (<2.0) 08/01/18 17:11 Ur Leukocyte Esterase Mod (Negative) 08/01/18 17:11 Urine WBC (Auto) > 182.0 /HPF (0.0-6.0) H 08/01/18 17:11 Urine RBC (Auto) > 182.0 /HPF (0.0-6.0) 08/01/18 17:11 U Epithel Cells (Auto) 7.0 /HPF (0-13.0) 08/01/18 17:11 Active Medications - Current Medications Current Medications: Generic Name Dose Route Start Last Admin Trade Name Freq PRN Reason Stop Dose Admin Acetaminophen 650 mg 08/01/18 22:01 08/03/18 03:02 Tylenol PO 650 mg Q4H PRN Administration Fever >101 Lipase/Protease/Amylase 1 each 08/02/18 14:22 Pancreaze 10,500 Unit FEEDTUBE PRN PRN For Clogged Feeding Tube Dextrose 50 ml 08/01/18 22:02 D50w (25gm) Syringe IV PRN PRN Hypoglycemia Sodium Chloride 1,000 mls @ 100 mls/hr 08/01/18 22:00 08/04/18 17:49 Nacl 0.9% 1000 Ml IV 100 mls/hr DIRECT DIANNE Administration Ceftriaxone Sodium 1 gm in 50 mls @ 100 mls/hr 08/02/18 10:00 08/05/18 09:45 Rocephin/Ns 1 Gm/50 Ml IV 100 mls/hr Q24HR DIANNE Administration Protocol Insulin Human Regular 0 units 08/02/18 07:30 08/05/18 12:16 Humulin R SUB-Q 2 units AC DIANNE Administration Protocol Insulin Human Regular 0 units 08/02/18 22:00 08/03/18 23:43 Humulin R SUB-Q 2 units QHS DIANNE Administration Protocol Morphine Sulfate 2 mg 08/01/18 22:00 Morphine IV Q4H PRN Pain, Moderate (4-6) Ondansetron HCl 4 mg 08/01/18 22:00 Zofran IV Q8H PRN Nausea And Vomiting Simple Syrup 15 ml 08/02/18 14:22 Simple Syrup FEEDTUBE PRN PRN Hypoglycemia Simple Syrup 30 ml 08/02/18 14:22 Simple Syrup FEEDTUBE PRN PRN Hypoglycemia Sodium Bicarbonate 325 mg 08/02/18 14:22 Sodium Bicarbonate FEEDTUBE PRN PRN For Clogged Feeding Tube Nutrition/Malnutrition Assess - Dietary Evaluation Nutrition/Malnutrition Findings: Nutrition Notes Start: 08/02/18 14:00 Freq: Status: Active Protocol: Document 08/04/18 15:23 RM (Rec: 08/04/18 15:27 RM [id number]) Nutrition Notes Initial or Follow up Reassessment Current Diagnosis Diabetes,Hypertension Other Pertinent Diagnosis Sacral wound, anxiety disorder , depression, dementia, reflux disease, UTI Current Diet Glucerna 1.2 at 65 ml/hr Labs/Tests No recent labs Pertinent Medications Reviewed Height 5 ft 3 in Weight 71.6 kg [place] Body Weight (kg) 52.27 BMI 27.9 Subjective/Other Information Observed Glucerna 1.2 infusing at 65 ml/hr. Per nurse pt is tolerating TF. Percent of energy/protein needs met: 100%/100% Burn Absent Trauma Absent #1 Nutrition Diagnosis Inadequate oral intake Diagnosis Progress(for reassessment Continues documentation) Is patient on ventilator? No Is Patient Ambulatory and/or Out of Bed No REE-([facility]-confined to bed) 1422.492 Kcal/Kg value to use for calculation 25 Approximate Energy Requirements Using 1790 kcal/Kg Calculation Used for Recommendations Kcal/kg Additional Notes Protein: 86-107 g/day (1.2-1.5 g/kg) Fluid: 1 ml/kcal Nutrition Intervention Nutrition Support: Glucerna 1.2 @ 65ml/hr. Water flush 100 ml q 4 hr. Kcal 1,872 Protein (gm) 93 Fluid (mL) 1,255 Goal #1 TF tolerance Goal #2 Continue to meet at least 75% of needs via TF Anticipated Discharge Needs: Glucerna 1.2 Follow-Up By: 08/11/18 Additional Comments Follow for TF tolerance
[2018-08-06] MEDS: ROCEPHIN/NS 1 GM/50 ML 1 GM/50 ML BAG IV SCH ×2 (08:55→10:25)
[2018-08-06] MEDS: HumuLIN R SUB-Q SCH ×4 (08:55→22:25)
[2018-08-06] MEDS: NACL 0.9% 1000 ML 1,000 ML IV SCH ×2 (08:56→22:25)
--- NOTE | 2018-08-06 12:31 | Progress Note ---
Assessment and Plan Assessment and plan: Patient is a 73 yo woman from [facility] with a history of PEG tube, Dementia, IDDM, hypertension and PD who presented to [facility] with vaginal bleeding, Pelvic ultrasound was performed with minimally thickened endometrium of 6-7mm and findings of small leiomyoma. The abdominal ultrasound was concerning for a possible mass in the urinary bladder. Upon placement of the victoria, findings of blood and particulate matter. 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 Follow-up on current diagnosis. Overnight uneventful. Patient is confused. Imaging, nursing note, chart, labs and old chart reviewed. at bedside. Hospitalist Physical - Physical exam Narrative exam: Gen: WDWN, NAD, Awake, Alert, Orientated x 1 HEENT: NCAT, EOMI, PERRL, OP Clear Neck: supple, no adenopathy, no thyromegaly, no JVD CVS/Heart: RRR, normal S1S2, pulses present bilaterally Chest/Lungs: CTA B, Symmetrical chest expansion, good air entry bilaterally GI/Abdomen: soft, PEG tube, good bowel sounds, no guarding or rebound /Bladder: no suprapubic tenderness, no CVA or paraspinal tenderness Extermity/Skin: no c/c/e, no obvious rash MSK: FROM x 4 Neuro: CN 2-12 grossly intact, no new focal deficits Psych: calm - Constitutional Vitals: Temp Pulse Resp BP Pulse Ox 97.9 F 82 12 135/73 97 08/06/18 07:19 08/06/18 07:19 08/06/18 07:19 08/06/18 07:19 08/06/18 07:19 General appearance: Present: no acute distress Results - Labs CBC & Chem 7: 08/04/18 00:42 08/01/18 15:42 Labs: Laboratory Last Values WBC 11.9 K/mm3 (4.5-11.0) H 08/04/18 00:42 RBC 3.85 M/mm3 (3.65-5.03) 08/04/18 00:42 Hgb 11.3 gm/dl (10.1-14.3) 08/04/18 00:42 Hct 34.7 % (30.3-42.9) 08/04/18 00:42 MCV 90 fl (79-97) 08/04/18 00:42 MCH 29 pg (28-32) 08/04/18 00:42 MCHC 33 % (30-34) 08/04/18 00:42 RDW 15.1 % (13.2-15.2) 08/04/18 00:42 Plt Count 189 K/mm3 (140-440) 08/04/18 00:42 Lymph % (Auto) 15.0 % (13.4-35.0) 08/01/18 15:42 [place] % (Auto) 4.3 % (0.0-7.3) 08/01/18 15:42 Eos % (Auto) 4.2 % (0.0-4.3) 08/01/18 15:42 Baso % (Auto) 0.2 % (0.0-1.8) 08/01/18 15:42 Lymph # 0.6 K/mm3 (1.2-5.4) L 08/01/18 15:42 [place] # 0.2 K/mm3 (0.0-0.8) 08/01/18 15:42 Eos # 0.2 K/mm3 (0.0-0.4) 08/01/18 15:42 Baso # 0.0 K/mm3 (0.0-0.1) 08/01/18 15:42 Add Manual Diff Complete 08/04/18 00:42 Total Counted 100 08/04/18 00:42 Seg Neutrophils % Model Engine Mechanic 08/04/18 00:42 Seg Neuts % (Manual) 93.0 % (40.0-70.0) H 08/04/18 00:42 Band Neutrophils % 0 % 08/04/18 00:42 Lymphocytes % (Manual) 3.0 % (13.4-35.0) L 08/04/18 00:42 Reactive Lymphs % (Man) 0 % 08/04/18 00:42 Monocytes % (Manual) 0 % (0.0-7.3) 08/04/18 00:42 Eosinophils % (Manual) 4.0 % (0.0-4.3) 08/04/18 00:42 Basophils % (Manual) 0 % (0.0-1.8) 08/04/18 00:42 Metamyelocytes % 0 % 08/04/18 00:42 Myelocytes % 0 % 08/04/18 00:42 Promyelocytes % 0 % 08/04/18 00:42 Blast Cells % 0 % 08/04/18 00:42 Nucleated RBC % Not Reportable 08/04/18 00:42 Seg Neutrophils # 3.2 K/mm3 (1.8-7.7) 08/01/18 15:42 Seg Neutrophils # Man 11.1 K/mm3 (1.8-7.7) H 08/04/18 00:42 Band Neutrophils # 0.0 K/mm3 08/04/18 00:42 Lymphocytes # (Manual) 0.4 K/mm3 (1.2-5.4) L 08/04/18 00:42 Abs React Lymphs (Man) 0.0 K/mm3 08/04/18 00:42 Monocytes # (Manual) 0.0 K/mm3 (0.0-0.8) 08/04/18 00:42 Eosinophils # (Manual) 0.5 K/mm3 (0.0-0.4) H 08/04/18 00:42 Basophils # (Manual) 0.0 K/mm3 (0.0-0.1) 08/04/18 00:42 Metamyelocytes # 0.0 K/mm3 08/04/18 00:42 Myelocytes # 0.0 K/mm3 08/04/18 00:42 Promyelocytes # 0.0 K/mm3 08/04/18 00:42 Blast Cells # 0.0 K/mm3 08/04/18 00:42 WBC Morphology Not Reportable 08/04/18 00:42 Hypersegmented Neuts Not Reportable 08/04/18 00:42 Hyposegmented Neuts Not Reportable 08/04/18 00:42 Hypogranular Neuts Not Reportable 08/04/18 00:42 Smudge Cells Not Reportable 08/04/18 00:42 Toxic Granulation Not Reportable 08/04/18 00:42 Toxic Vacuolation Not Reportable 08/04/18 00:42 Dohle Bodies Not Reportable 08/04/18 00:42 Pelger-Huet Anomaly Not Reportable 08/04/18 00:42 Janna Rods Not Reportable 08/04/18 00:42 Platelet Estimate Consistent w auto 08/04/18 00:42 Clumped Platelets Not Reportable 08/04/18 00:42 Plt Clumps, EDTA Not Reportable 08/04/18 00:42 Large Platelets Not Reportable 08/04/18 00:42 Giant Platelets Not Reportable 08/04/18 00:42 Platelet Satelliting Not Reportable 08/04/18 00:42 Plt Morphology Comment Not Reportable 08/04/18 00:42 RBC Morphology Normal 08/04/18 00:42 Dimorphic RBCs Not Reportable 08/04/18 00:42 Polychromasia Not Reportable 08/04/18 00:42 Hypochromasia Not Reportable 08/04/18 00:42 Poikilocytosis Not Reportable 08/04/18 00:42 Anisocytosis Not Reportable 08/04/18 00:42 Microcytosis Not Reportable 08/04/18 00:42 Macrocytosis Not Reportable 08/04/18 00:42 Spherocytes Not Reportable 08/04/18 00:42 Pappenheimer Bodies Not Reportable 08/04/18 00:42 Sickle Cells Not Reportable 08/04/18 00:42 Target Cells Not Reportable 08/04/18 00:42 Tear Drop Cells Not Reportable 08/04/18 00:42 Ovalocytes Not Reportable 08/04/18 00:42 Helmet Cells Not Reportable 08/04/18 00:42 [place] Bodies Not Reportable 08/04/18 00:42 [place] Rings Not Reportable 08/04/18 00:42 [place] Cells Not Reportable 08/04/18 00:42 Bite Cells Not Reportable 08/04/18 00:42 Crenated Cell Not Reportable 08/04/18 00:42 Elliptocytes Not Reportable 08/04/18 00:42 Acanthocytes (Spur) Not Reportable 08/04/18 00:42 Rouleaux Not Reportable 08/04/18 00:42 Hemoglobin C Crystals Not Reportable 08/04/18 00:42 Schistocytes Not Reportable 08/04/18 00:42 Malaria parasites Not Reportable 08/04/18 00:42 Terry Bodies Not Reportable 08/04/18 00:42 Hem Pathologist Commnt No 08/04/18 00:42 PT 14.5 Sec. (12.2-14.9) 08/01/18 15:42 INR 1.06 (0.87-1.13) 08/01/18 15:42 APTT 31.0 Sec. (24.2-36.6) 08/01/18 15:42 Sodium 143 mmol/L (137-145) 08/01/18 15:42 Potassium 4.1 mmol/L (3.6-5.0) 08/01/18 15:42 Chloride 105.7 mmol/L (98-107) 08/01/18 15:42 Carbon Dioxide 27 mmol/L (22-30) 08/01/18 15:42 Anion Gap 14 mmol/L 08/01/18 15:42 BUN 23 mg/dL (7-17) H 08/01/18 15:42 Creatinine 0.8 mg/dL (0.7-1.2) 08/01/18 15:42 Estimated GFR > 60 ml/min 08/01/18 15:42 BUN/Creatinine Ratio 29 % 08/01/18 15:42 Glucose 83 mg/dL (65-100) 08/01/18 15:42 POC Glucose 211 (70-105) H 08/06/18 11:52 Calcium 9.7 mg/dL (8.4-10.2) 08/01/18 15:42 Total Bilirubin 0.20 mg/dL (0.1-1.2) 08/01/18 15:42 AST 17 units/L (5-40) 08/01/18 15:42 ALT < 5 units/L (7-56) L 08/01/18 15:42 Alkaline Phosphatase 63 units/L (35-129) 08/01/18 15:42 C-Reactive Protein 9.20 mg/dL (0.00-1.30) H 08/04/18 00:42 Total Protein 7.0 g/dL (6.3-8.2) 08/01/18 15:42 Albumin 3.3 g/dL (3.9-5) L 08/01/18 15:42 Albumin/Globulin Ratio 0.9 % 08/01/18 15:42 Urine Color Red (Yellow) 08/01/18 17:11 Urine Turbidity Cloudy (Clear) 08/01/18 17:11 Urine pH 7.0 (5.0-7.0) 08/01/18 17:11 Ur Specific [place] 1.028 (1.003-1.030) 08/01/18 17:11 Urine Protein 100 mg/dl mg/dL (Negative) 08/01/18 17:11 Urine Glucose (UA) Neg mg/dL (Negative) 08/01/18 17:11 Urine Ketones Tr mg/dL (Negative) 08/01/18 17:11 Urine Blood Lg (Negative) 08/01/18 17:11 Urine Nitrite Neg (Negative) 08/01/18 17:11 Urine Bilirubin Neg (Negative) 08/01/18 17:11 Urine Urobilinogen < 2.0 mg/dL (<2.0) 08/01/18 17:11 Ur Leukocyte Esterase Mod (Negative) 08/01/18 17:11 Urine WBC (Auto) > 182.0 /HPF (0.0-6.0) H 08/01/18 17:11 Urine RBC (Auto) > 182.0 /HPF (0.0-6.0) 08/01/18 17:11 U Epithel Cells (Auto) 7.0 /HPF (0-13.0) 08/01/18 17:11 Active Medications - Current Medications Current Medications: Generic Name Dose Route Start Last Admin Trade Name Freq PRN Reason Stop Dose Admin Acetaminophen 650 mg 08/01/18 22:01 08/03/18 03:02 Tylenol PO 650 mg Q4H PRN Administration Fever >101 Lipase/Protease/Amylase 1 each 08/02/18 14:22 Pancreaze 10,500 Unit FEEDTUBE PRN PRN For Clogged Feeding Tube Dextrose 50 ml 08/01/18 22:02 D50w (25gm) Syringe IV PRN PRN Hypoglycemia Sodium Chloride 1,000 mls @ 100 mls/hr 08/01/18 22:00 08/06/18 08:56 Nacl 0.9% 1000 Ml IV 100 mls/hr DIRECT DIANNE Administration Ceftriaxone Sodium 1 gm in 50 mls @ 100 mls/hr 08/02/18 10:00 08/06/18 10:25 Rocephin/Ns 1 Gm/50 Ml IV Not Given Q24HR DIANNE Protocol Insulin Human Regular 0 units 08/02/18 07:30 08/06/18 08:55 Humulin R SUB-Q 1 units AC DIANNE Administration Protocol Insulin Human Regular 0 units 08/02/18 22:00 08/05/18 23:10 Humulin R SUB-Q 1 units QHS DIANNE Administration Protocol Morphine Sulfate 2 mg 08/01/18 22:00 Morphine IV Q4H PRN Pain, Moderate (4-6) Ondansetron HCl 4 mg 08/01/18 22:00 Zofran IV Q8H PRN Nausea And Vomiting Simple Syrup 15 ml 08/02/18 14:22 Simple Syrup FEEDTUBE PRN PRN Hypoglycemia Simple Syrup 30 ml 08/02/18 14:22 Simple Syrup FEEDTUBE PRN PRN Hypoglycemia Sodium Bicarbonate 325 mg 08/02/18 14:22 Sodium Bicarbonate FEEDTUBE PRN PRN For Clogged Feeding Tube Nutrition/Malnutrition Assess - Dietary Evaluation Nutrition/Malnutrition Findings: Nutrition Notes Start: 08/02/18 14:0 0 Freq: Status: Active Protocol: Document 08/04/18 15:23 RM (Rec: 08/04/18 15:27 RM [id number]) Nutrition Notes Initial or Follow up Reassessment Current Diagnosis Diabetes,Hypertension Other Pertinent Diagnosis Sacral wound, anxiety disorder , depression, dementia, reflux disease, UTI Current Diet Glucerna 1.2 at 65 ml/hr Labs/Tests No recent labs Pertinent Medications Reviewed Height 5 ft 3 in Weight 71.6 kg [place] Body Weight (kg) 52.27 BMI 27.9 Subjective/Other Information Observed Glucerna 1.2 infusing at 65 ml/hr. Per nurse pt is tolerating TF. Percent of energy/protein needs met: 100%/100% Burn Absent Trauma Absent #1 Nutrition Diagnosis Inadequate oral intake Diagnosis Progress(for reassessment Continues documentation) Is patient on ventilator? No Is Patient Ambulatory and/or Out of Bed No REE-([facility]-confined to bed) 1422.492 Kcal/Kg value to use for calculation 25 Approximate Energy Requirements Using 1790 kcal/Kg Calculation Used for Recommendations Kcal/kg Additional Notes Protein: 86-107 g/day (1.2-1.5 g/kg) Fluid: 1 ml/kcal Nutrition Intervention Nutrition Support: Glucerjustine 1.2 @ 65ml/hr. Water flush 100 ml q 4 hr. Kcal 1,872 Protein (gm) 93 Fluid (mL) 1,255 Goal #1 TF tolerance Goal #2 Continue to meet at least 75% of needs via TF Anticipated Discharge Needs: Glucerna 1.2 Follow-Up By: 08/11/18 Additional Comments Follow for TF tolerance
--- NOTE | 2018-08-07 08:43 | Progress Note ---
Assessment and Plan Cultures: 08/01/18:Urine: no growth 08/03/18: Blood: no growth A/P: 73-year-old female with a past medical history of dementia, diabetes, hypertension, Parkinsons, contracted with minimal spontaneous movement and nonverbal, that presented to the ED on 08/01/18 from the nursing home facility with complaints of vaginal bleeding. On 07/31/18, she was diagnosed with a UTI at the SNF and was started on antibiotics. An abdominal ultrasound was done and results were concerning for a possible mass in the urinary bladder..Pateint presented in the ED for perineal abscess, s/p I & D on 07/28/18. Now with: 1. SIRS vs Sepis: not on admission, evidenced by fever, tachycardia and hypotension on 08/03/18. Resolved. Etiology unclear, multi-factorial - most likely UTI, +/- bladder mass, +/- unstageable sacral ulceration. U/A consistent with a UTI. Blood Cultures show no growth . Currently being treated with Ceftriaxone. CXR no consolidation. CRP 9. 2. UTI: U/A with Pyuria WBC >182, Moderate LE. Urine culture shows no growth. Pelvic ultrasound shows debris in the dependent portion of the urinary bladder versus mass in the posterior aspect of the urinary bladder. Urology wants outpatient evaluation. 3. Vaginal Bleeding: Transvaginal US: Small nodule upper uterine fundus may be a fibroid measuring 17 mm. The endometrium is homogenous. Endometrial thickness is 6.0 mm. 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 4. Perirectal surgical wound and Stage 2 Decubitus Ulcer: continue wound care. following. Plan: Discontinue Ceftriaxone Monitor off antibiotics ID is signing off [facility] [facility] M: [id number] O:[phone] Subjective Date of service: 08/07/18 Principal diagnosis: hematuria uti Interval history: Patient seen and examined. at bedside. Asleep, opens eyes to name. Nonverbal. No acute distress observed. No fevers. Objective - Exam Narrative Exam: Constitutional: Asleep, Easy to arouse. Nonverbal. No acute distress Head, Ears, Nose: Normocephalic, atraumatic. External ears, nose normal Eyes: Conjunctivae/corneas clear. No icterus. No ptosis. Neck: Supple, no meningeal signs Oral: unable to assess would not open mouth Cardiovascular: S1, S2 normal. Respiratory: Good air entry, clear to auscultation bilaterally GI: Soft, non-tender; bowel sounds normal. No peritoneal signs, +G-tube Musculoskeletal: No pedal edema, no cyanosis. Skin: No rash or abscess. Hem/Lymphatic: No palpable cervical or supraclavicular nodes. No lymphangitis Psych: unable to assess, asleep , difficult to arouse Neurological: Asleep, eyes open to tactile stimulation. Calm, nonverbal - Constitutional Vitals: Vital Signs Temp Pulse Resp BP Pulse Ox 98.6 F 85 20 128/65 99 08/07/18 02:42 08/07/18 02:42 08/07/18 02:42 08/07/18 02:42 08/07/18 02:42 Temperature -Last 24 Hours Temperature 98.6 F Temperature 98.6 F Temperature 98.3 F - Labs CBC & Chem 7: 08/07/18 09:00 08/01/18 15:42 Labs: Abnormal lab results 08/06/18 08/06/18 08/06/18 Range/Units 11:52 17:02 21:55 POC Glucose 211 H 204 H 150 H (70-105) 08/07/18 Range/Units 06:11 POC Glucose 208 H (70-105)
[2018-08-07] MEDS: HumuLIN R SUB-Q SCH ×2 (09:08→12:30)
--- NOTE | 2018-08-07 10:27 | Discharge Summary ---
Providers - Providers Date of Admission: 08/01/18 19:52 Date of discharge: 08/07/18 Attending physician: NAYELY PENA 08/01/18 19:15 Consult to Physician [CONS] Urgent Comment: Dr. Packer spoke with Dr. Myles @ 194 Consulting Provider: SHEILA MCDERMOTT Physician Instructions: Reason For Exam: vaginal bleeding Consult to Physician [CONS] Urgent Comment: Dr. Packer spoke with Dr. Mathew @ 193 Consulting Provider: SONAL MATHEW Physician Instructions: Reason For Exam: hematuria 08/02/18 07:23 Consult to Wound/ET Nurse [CONS] Routine Reason For Exam: wound eval 08/02/18 12:52 Consult to Dietitian/Nutrition [CONS] Routine Physician Instructions: Reason For Exam: MANAGE TUBE FEEDING Reason for Consult: Write/Manage Tube Feeding 08/03/18 11:51 Consult to Physician [CONS] Routine Comment: Consulting Provider: ALTHEA BRONSON Physician Instructions: Reason For Exam: Fever, sacral decubitus ulcer 08/03/18 11:53 Consult to Physician [CONS] Routine Comment: Consulting Provider: YVETTE MOSCOSO Physician Instructions: Reason For Exam: is the sacral decubitus ulcer infected Primary care physician: YVROSE SALCEDO Hospitalization Condition: Stable Hospital course: Patient is a 73 yo woman from [facility] with a history of PEG tube, Dementia, IDDM, hypertension and PD who presented to [facility] with vaginal bleeding, Pelvic ultrasound was performed with minimally thickened endometrium of 6-7mm and findings of small leiomyoma. The abdominal ultrasound was concerning for a possible mass in the urinary bladder. Upon placement of the victoria, findings of blood and particulate matter. 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 Mathew UTI with sepsis: treated with abx, urine culture negative Now stage 2 sacral ulcer: wound care is following, consulted General Surgeon, input noted DVT prophylaxis SCD DNR per Disposition: d/c back to [facility], Disposition: DC/[place]-[facility] SNF [facility] Time spent for discharge: 36 minutes Core Measure Documentation - Palliative Care Palliative Care/ Comfort Measures: Not Applicable - Core Measures Any of the following diagnoses?: none - VTE Discharge Requirements Deep Vein Thrombosis/Pulmonary Embolism Present on Admission: No Has pt received <5 days of overlap therapy or INR<2.0: No Anticoagulant overlap therapy prescribed at discharge: No Contraindication No Overlap Therapy order at DC: Not Indicated Exam - Physical Exam Narrative exam: Gen: WDWN, NAD, Awake, Alert, Orientated x 1 HEENT: NCAT, EOMI, PERRL, OP Clear Neck: supple, no adenopathy, no thyromegaly, no JVD CVS/Heart: RRR, normal S1S2, pulses present bilaterally Chest/Lungs: CTA B, Symmetrical chest expansion, good air entry bilaterally GI/Abdomen: soft, PEG tube, good bowel sounds, no guarding or rebound /Bladder: no suprapubic tenderness, no CVA or paraspinal tenderness Extermity/Skin: no c/c/e, no obvious rash MSK: FROM x 4 Neuro: CN 2-12 grossly intact, no new focal deficits Psych: calm - Constitutional Vitals: Temp Pulse Resp BP Pulse Ox 98.6 F 85 20 128/65 99 08/07/18 02:42 08/07/18 02:42 08/07/18 02:42 08/07/18 02:42 08/07/18 02:42 Plan Activity: other (frequent q2 hours turn off buttock) Diet: per dietitian instruction (tube feedings) Additional Instructions: Need pressure relieving mattress. Need to see foundry worker general for endometrial biopsy. Need to see Urologist for Cystoscopy Follow up with: YVROSE SALCEDO MD [Primary Care Provider] - 7 Days SONAL MATHEW MD [Staff Physician] - 7 Days SHEILA MCDERMOTT MD [Staff Physician] - 7 Days
[2018-08-07 10:37] LABS: Hematocrit 31.9 % (30.3-42.9); Hemoglobin 10.5 gm/dl (10.1-14.3); Mean Corpuscular HGB Conc 33 % (30-34); Mean Corpuscular Volume 89 fl (79-97); Platelet Count 171 K/mm3 (140-440); Red Blood Count 3.57 M/mm3 (3.65-5.03); Red Cell Distribution Width 14.7 % (13.2-15.2)
[2018-08-07] MEDS: NACL 0.9% 1000 ML 1,000 ML IV SCH (10:46)
[2018-08-07 14:11] VITALS: BP 141/70
[2018-08-07 15:31] LABS: Band Neutrophils # (Manual) 0.2 K/mm3; Basophils % (Manual) 0 % (0.0-1.8); Platelet Estimate Consistent w Auto; RBC Morphology Normal; Total Cells Counted 100
== END 2018-08-07 14:15 | DRG 698 ==
LOC: ED 13:31 → 2B-ACE 19:52
PROVIDERS: ADMIT Internal Medicine; ATTEND Internal Medicine
DX: N32.9 Bladder disorder, unspecified (principal); A41.9 Sepsis, unspecified organism; N39.0 Urinary tract infection, site not specified; N95.0 Postmenopausal bleeding; R31.9 Hematuria, unspecified; G20 Parkinson's disease; L89.152 Pressure ulcer of sacral region, stage 2; D21.9 Benign neoplasm of connective and other soft tissue, unspecified; Z66 Do not resuscitate; F03.90 Unspecified dementia, unspecified severity, without behavioral disturbance, psychotic disturbance, mood disturbance, and anxiety; E11.9 Type 2 diabetes mellitus without complications; I10 Essential (primary) hypertension; M19.90 Unspecified osteoarthritis, unspecified site; F41.9 Anxiety disorder, unspecified; R93.89 Abnormal findings on diagnostic imaging of other specified body structures; F32.9 Major depressive disorder, single episode, unspecified; K21.9 Gastro-esophageal reflux disease without esophagitis; Z93.1 Gastrostomy status; Z79.4 Long term (current) use of insulin; Z88.2 Allergy status to sulfonamides; Z79.899 Other long term (current) drug therapy
CPT/HCPCS: 36415; 71046; 74176; 76830; 76856; 80053; 81001; 82962; 85007; 85014; 85018; 85025; 85610; 85730; 86140; 87040; 87086; 96365; G0378; J0696; J1815; J7030; J7040; J7050

== ENCOUNTER 2018-09-24 17:25 | Emergency (ER) | payer MEDICARE ==
[2018-09-24] MEDS ORDERED: AMIDATE IV ONE (17:37)
--- NOTE | 2018-09-24 17:41 | Emergency Department Report ---
ED Altered Mental Status HPI - General Chief Complaint: Altered Mental Status Stated Complaint: UNRESPONSIVE Time Seen by Provider: 09/24/18 17:25 Source: EMS Mode of arrival: Stretcher Limitations: Altered Mental Status - History of Present Illness Initial Comments: Patient is a 73-year-old female presents for unresponsiveness. Patient report received from EMS. EMS states that the [facility] nursing staff states that the patient was found unresponsive at 4 PM. Patient's last known well time was just prior to being found at 4 PM per EMS. MD Complaint: altered mental status, decreased responsiveness -: Sudden Severity: severe Consistency of Symptoms: constant Treatments Prior to Arrival: IV fluid, oxygen - Related Data Home Medications Medication Instructions Recorded Confirmed Last Taken Carbidopa/Levodopa 25-100 [Sinemet 1 each PO TID 02/18/15 08/01/18 02/18/15 25/100] Docusate Sodium [Colace CAP] 100 mg PO DAILY 02/18/15 08/01/18 02/18/15 Aspirin [Aspirin BABY CHEW TAB] 81 mg PO QDAY 08/01/18 08/01/18 Unknown Glycerin/Propylene Glycol 1 drop OU BID 08/01/18 08/01/18 Unknown [Artificial Tears Drops] Insulin Aspart [NovoLOG Flexpen] See Protocol SQ AC 08/01/18 08/01/18 Unknown Insulin Detemir [Levemir Flextouch] 25 units SUB-Q QHS 08/01/18 08/01/18 Unknown Lisinopril [Zestril TAB] 2.5 mg PO QDAY 08/01/18 08/01/18 Unknown Multivitamin Tab W-MINERAL 1 each PO DAILY 08/01/18 08/01/18 Unknown [Multiple Vitamin/Mineral (Theragran M)] Nut.tx.gluc.intoler,Lac-Fr,Soy 65 ml FEEDTUBE CONT 08/01/18 08/01/18 Unknown [Glucerna 1.5 Montrell] traMADol [Ultram 50 MG tab] 50 mg FEEDTUBE Q6HR PRN 08/01/18 08/01/18 Unknown Previous Rx's Medication Instructions Recorded Last Taken Type Polyethylene Glycol 3350 17 gm PO DAILY PRN #10 08/07/18 Unknown Rx [Smoothlax] Allergies Allergy/AdvReac Type Severity Reaction Status Date / Time Sulfa (Sulfonamide Allergy Unknown Verified 09/24/18 18:01 Antibiotics) ED Review of Systems ROS: Stated complaint: UNRESPONSIVE Other details as noted in HPI Comment: Unobtainable due to pts medical conditions ED Past Medical Hx - Past Medical History Previous Medical History?: Yes Hx Hypertension: Yes Hx Diabetes: Yes Hx Liver Disease: No Hx Arthritis: Yes Hx Seizures: No Hx Psychiatric Treatment: Yes (anxiety/depression) Hx Dementia: Yes Hx HIV: No Additional medical history: GERD, UTI, flaccid neuropathic bladder, parkinsons, constipation - Surgical History Past Surgical History?: No Additional Surgical History: unknown - Family History Family history: no significant - Social History Smoking Status: Unknown if ever smoked Substance Use Type: None - Medications Home Medications: Home Medications Medication Instructions Recorded Confirmed Last Taken Type Carbidopa/Levodopa 25-100 [Sinemet 1 each PO TID 02/18/15 08/01/18 02/18/15 Hi story 25/100] Docusate Sodium [Colace CAP] 100 mg PO DAILY 02/18/15 08/01/18 02/18/15 History Aspirin [Aspirin BABY CHEW TAB] 81 mg PO QDAY 08/01/18 08/01/18 Unknown History Glycerin/Propylene Glycol 1 drop OU BID 08/01/18 08/01/18 Unknown History [Artificial Tears Drops] Insulin Aspart [NovoLOG Flexpen] See Protocol SQ AC 08/01/18 08/01/18 Unknown History Insulin Detemir [Levemir Flextouch] 25 units SUB-Q QHS 08/01/18 08/01/18 Unknown History Lisinopril [Zestril TAB] 2.5 mg PO QDAY 08/01/18 08/01/18 Unknown History Multivitamin Tab W-MINERAL 1 each PO DAILY 08/01/18 08/01/18 Unknown History [Multiple Vitamin/Mineral (Theragran M)] Nut.tx.gluc.intoler,Lac-Fr,Soy 65 ml FEEDTUBE CONT 08/01/18 08/01/18 Unknown History [Glucerna 1.5 Montrell] traMADol [Ultram 50 MG tab] 50 mg FEEDTUBE Q6HR PRN 08/01/18 08/01/18 Unknown History Polyethylene Glycol 3350 17 gm PO DAILY PRN #10 08/07/18 08/01/18 Unknown Rx [Smoothlax] ED Physical Exam - General Limitations: Altered Mental Status, Physical Limitation General appearance: obtunded - Head Head exam: Present: atraumatic, normocephalic - Eye Eye exam: Present: normal appearance, PERRL Pupils: Present: normal accommodation - ENT ENT exam: Present: mucous membranes dry - Neck Neck exam: Present: normal inspection - Respiratory Respiratory exam: Present: rhonchi, decreased breath sounds - Cardiovascular Cardiovascular Exam: Present: regular rate, normal rhythm, tachycardia. Absent: systolic murmur, diastolic murmur, rubs, gallop - GI/Abdominal GI/Abdominal exam: Present: soft, normal bowel sounds - Rectal Rectal exam: Present: deferred - Extremities Exam Extremities exam: Present: normal inspection - Neurological Exam Neurological exam: Present: altered - Expanded Neurological Exam Expanded Best Eye Response ([place]): (1) no response Best Motor Response ([place]): (1) no motor response Best Verbal Response ([place]): (1) no verbal response Aury Total: 3 - Skin Skin exam: Present: warm, dry, intact, normal color. Absent: rash - Assessment Assessment Interval: Baseline - Level of Consciousness 1a. Level of Consciousness: coma/unresponsive - LOC Questions 1b. LOC Questions: dysarthric/intubated - LOC Command 1c. LOC Commands: performs no tasks correctly - Best Gaze 2. Best Gaze: normal - Visual 3. Visual: no visual loss - Facial Palsy 4. Facial Palsy: normal symmetrical movement - Motor Arm 5a. Motor Arm Left: no movement 5b. Motor Arm Right: no movement - Motor Leg 6a. Motor Leg Left: no movement 6b. Motor Leg Right: no movement - Limb Ataxia 7. Limb Ataxia: absent - Sensory 8. Sensory: no response/quadraplegic - Best Language 9. Best Language: coma/unresponsive - Dysarthria 10. Dysarthria: intubated or other barrier - Extinction and Inattention 11. Extinction/Inattention: no abnormality - Scoring Total Score: 27 Stroke Severity: Severe Stroke ED Course Vital Signs 09/24/18 09/24/18 09/24/18 17:26 17:30 17:35 Temperature 99 F Pulse Rate 138 H 139 H 138 H Respiratory 50 H 44 H Rate Blood Pressure 88/53 Blood Pressure 88/53 [Left] O2 Sat by Pulse 96 100 Oximetry 09/24/18 09/24/18 09/24/18 17:46 17:53 17:56 Temperature Pulse Rate 126 H 126 H Respiratory 18 Rate Blood Pressure 105/56 Blood Pressure [Left] O2 Sat by Pulse 100 Oximetry 09/24/18 09/24/18 09/24/18 18:00 18:16 18:40 Temperature Pulse Rate 126 H 127 H 124 H Respiratory 16 17 16 Rate Blood Pressure 76/26 76/26 Blood Pressure [Left] O2 Sat by Pulse Oximetry 09/24/18 09/24/18 09/24/18 18:45 19:08 19:15 Temperature Pulse Rate 123 H 119 H 117 H Respiratory 16 20 20 Rate Blood Pressure 66/39 54/26 57/27 Blood Pressure [Left] O2 Sat by Pulse 100 Oximetry 09/24/18 09/24/18 09/24/18 19:30 19:46 20:00 Temperature Pulse Rate 158 H 157 H 157 H Respiratory 20 20 20 Rate Blood Pressure 75/33 100/58 95/47 Blood Pressure [Left] O2 Sat by Pulse Oximetry 09/24/18 09/24/18 09/24/18 20:16 20:30 20:46 Temperature Pulse Rate 170 H 169 H 167 H Respiratory 24 22 41 H Rate Blood Pressure 91/36 87/38 81/58 Blood Pressure [Left] O2 Sat by Pulse Oximetry 09/24/18 09/24/18 09/24/18 21:00 21:16 21:30 Temperature Pulse Rate 171 H 168 H 141 H Respiratory 29 H 40 H 24 Rate Blood Pressure 81/58 116/13 63/13 Blood Pressure [Left] O2 Sat by Pulse Oximetry 09/24/18 09/24/18 09/24/18 21:42 21:44 21:46 Temperature Pulse Rate 160 H 151 H 151 H Respiratory 34 H 33 H 34 H Rate Blood Pressure 136/61 138/17 151/16 Blood Pressure [Left] O2 Sat by Pulse Oximetry 09/24/18 09/24/18 09/24/18 21:48 21:50 21:52 Temperature Pulse Rate 150 H 152 H 145 H Respiratory 33 H 35 H 32 H Rate Blood Pressure 151/16 151/16 147/19 Blood Pressure [Left] O2 Sat by Pulse Oximetry 09/24/18 09/24/18 09/24/18 21:54 21:56 21:58 Temperature Pulse Rate 148 H 136 H 112 H Respiratory 35 H 23 18 Rate Blood Pressure 158/39 158/39 158/39 Blood Pressure [Left] O2 Sat by Pulse Oximetry 09/24/18 09/24/18 09/24/18 22:00 22:02 22:04 Temperature Pulse Rate 103 H 97 H 87 Respiratory 20 20 20 Rate Blood Pressure 158/39 158/39 158/39 Blood Pressure [Left] O2 Sat by Pulse Oximetry 09/24/18 09/24/18 09/24/18 22:06 22:08 22:10 Temperature Pulse Rate 76 70 56 L Respiratory 21 20 20 Rate Blood Pressure 158/39 158/39 158/39 Blood Pressure [Left] O2 Sat by Pulse Oximetry 09/24/18 09/24/18 09/24/18 22:12 22:14 22:16 Temperature Pulse Rate 88 70 76 Respiratory 20 20 20 Rate Blood Pressure 158/39 158/39 158/39 Blood Pressure [Left] O2 Sat by Pulse Oximetry 09/24/18 09/24/18 09/24/18 22:18 22:20 22:22 Temperature Pulse Rate 68 57 L Respiratory 20 20 21 Rate Blood Pressure 158/39 158/39 158/39 Blood Pressure [Left] O2 Sat by Pulse Oximetry 09/24/18 09/24/18 09/24/18 22:24 22:25 22:26 Temperature Pulse Rate 59 L 134 H 50 L Respiratory 81 H 29 H Rate Blood Pressure 158/39 Blood Pressure [Left] O2 Sat by Pulse Oximetry 09/24/18 09/24/18 09/24/18 22:28 22:30 22:32 Temperature Pulse Rate 40 L 38 L Respiratory 42 H 18 19 Rate Blood Pressure 150/110 150/110 Blood Pressure [Left] O2 Sat by Pulse Oximetry 09/24/18 22:35 Temperature Pulse Rate Respiratory 21 Rate Blood Pressure 150/110 Blood Pressure [Left] O2 Sat by Pulse Oximetry - Reevaluation(s) Reevaluation #1: His evaluation done. Patient minimally responsive and have a slow respiratory rate. Patient will be intubated to protect airway. Patient's GCS is less than 8. See procedure note. Patient intubated without difficulty. Patient found to be hypotensive and given a 200 mL bolus of normal saline and her blood pressure improved 09/24/18 17:44 Blood pressure low again and patient will be given another 500 bolus 09/24/18 18:01 Patient's blood pressure still low. Patient has already had 2 L of normal saline. Patient will be given another bolus of fluid and started on Levophed. Patient will have central line placed once blood pressure improved. Discussed case with family. Family at bedside 09/24/18 19:13 Central line placed without difficulty. See procedure note. Patient blood pressure improving on Levophed. 09/24/18 20:10 Patient's blood pressure low again and patient has maxed on Levophed. Patient will be started on a second pressor. 09/24/18 20:58 Reevaluation #2: Family meeting done at bedside. Discussed case with family. Patient's blood pressure low. We will titrate of the patient's dobutamine. And continue to give patient normal saline boluses. 09/24/18 21:30 Patient still having hyperglycemia. Patient will be given insulin IV. 09/24/18 22:17 Patient went asystole. Code initiated. See code note. Code ran in accordance with ACLS guidelines. 09/24/18 22:24 Resuscitation efforts terminated due to no signs of life. Patient's asystole on the monitor. No pulse or cardiac motion. 09/24/18 22:31 Reevaluation #3: Patient . Family meeting done. Family support given. 09/24/18 22:34 - Central Line Placement Right Femoral Consent Obtained: emergent situation Time Out Performed: Yes Patient Placed on Monitor/Pulse Ox: Yes Prep: mask, gown, gloves Central Line Prep: Chlorhexidine scrub, sterile drapes applied Ultrasound Used for Placement: Yes Central Line Lumen Inserted: triple Bloods Obtained for Lab: Yes Central Line Position: good blood return, all ports aspirated, flus, sutured in place with 2-0 Dressing Applied: Tegaderm Patient Tolerated Procedure: well, no complications - EJ/Peripheral Line Neck L Time Out Performed: Yes Indications: multiple IV sites needed Skin Cleansed in Sterile Fashion: Yes Size: 18 Dressing Placed: Tegaderm, tape Patient Tolerated Procedure: well, no complications - Intubation Time Out Performed: Yes Sedative: Etomidate Paralytic: Rocuronium Laryngoscope: fiberoptic video scope Size: 4 Assist Device Used: fiberoptic device ET Tube Size: 7.5 Tube Secured Depth (cm): 21 Tube Secured Location: teeth Tube Placement Confirmation: visualized tube passing t, equal breath sounds bilat, no breath sounds over epi, confirmation by capnometr Patient Tolerated Procedure: well, no complications Intubation Complications: none - Lab Data Result diagrams: 09/24/18 18:12 09/24/18 18:12 Lab Results 09/24/18 09/24/18 09/24/18 Range/Units 18:12 18:12 18:12 WBC 11.1 H (4.5-11.0) K/mm3 RBC 4.33 (3.65-5.03) M/mm3 Hgb 12.1 (10.1-14.3) gm/dl Hct 40.6 (30.3-42.9) % MCV 94 (79-97) fl MCH 28 (28-32) pg MCHC 30 (30-34) % RDW 16.6 H (13.2-15.2) % Plt Count 251 (140-440) K/mm3 Lymph % (Auto) 6.1 L (13.4-35.0) % Whitley % (Auto) 3.2 (0.0-7.3) % Eos % (Auto) 0.3 (0.0-4.3) % Baso % (Auto) 0.6 (0.0-1.8) % Lymph # 0.7 L (1.2-5.4) K/mm3 Whitley # 0.4 (0.0-0.8) K/mm3 Eos # 0.0 (0.0-0.4) K/mm3 Baso # 0.1 (0.0-0.1) K/mm3 Total Counted Cancelled Seg Neutrophils % 89.8 H (40.0-70.0) % Seg Neuts % (Manual) Cancelled Band Neutrophils % Cancelled Lymphocytes % (Manual) Cancelled Reactive Lymphs % (Man) Cancelled Monocytes % (Manual) Cancelled Eosinophils % (Manual) Cancelled Basophils % (Manual) Cancelled Metamyelocytes % Cancelled Myelocytes % Cancelled Promyelocytes % Cancelled Blast Cells % Cancelled Nucleated RBC % Cancelled Seg Neutrophils # 10.0 H (1.8-7.7) K/mm3 Seg Neutrophils # Man Cancelled Band Neutrophils # Cancelled Lymphocytes # (Manual) Cancelled Abs React Lymphs (Man) Cancelled Monocytes # (Manual) Cancelled Eosinophils # (Manual) Cancelled Basophils # (Manual) Cancelled Metamyelocytes # Cancelled Myelocytes # Cancelled Promyelocytes # Cancelled Blast Cells # Cancelled WBC Morphology Cancelled Hypersegmented Neuts Cancelled Hyposegmented Neuts Cancelled Hypogranular Neuts Cancelled Hypersegmented Polys Cancelled Smudge Cells Cancelled Toxic Granulation Cancelled Toxic Vacuolation Cancelled Dohle Bodies Cancelled Pelger-Huet Anomaly Cancelled Janna Rods Cancelled Platelet Estimate Cancelled Clumped Platelets Cancelled Plt Clumps, EDTA Cancelled Large Platelets Cancelled Giant Platelets Cancelled Platelet Satelliting Cancelled Plt Morphology Comment Cancelled RBC Morphology Cancelled Dimorphic RBCs Cancelled Polychromasia Cancelled Hypochromasia Cancelled Poikilocytosis Cancelled Basophilic Stippling Cancelled Anisocytosis Cancelled Microcytosis Cancelled Macrocytosis Cancelled Spherocytes Cancelled Pappenheimer Bodies Cancelled Sickle Cells Cancelled Target Cells Cancelled Tear Drop Cells Cancelled Ovalocytes Cancelled Stomatocytes Cancelled Helmet Cells Cancelled [place] Bodies Cancelled [place] Rings Cancelled [place] Cells Cancelled Bite Cells Cancelled Crenated Cell Cancelled Elliptocytes Cancelled Acanthocytes (Spur) Cancelled Rouleaux Cancelled Hemoglobin C Crystals Cancelled Schistocytes Cancelled Malaria parasites Cancelled Terry Bodies Cancelled Hem Pathologist Commnt Cancelled POC ABG pH (7.35-7.45) POC ABG pCO2 (35-45) POC ABG pO2 (80-105) POC ABG HCO3 (22-26 mml/L) POC ABG Total CO2 (23-27mmol/L) POC ABG O2 Sat POC ABG Base Excess ((-2) - (+3)mmol/L) FiO2 % Sodium 163 H* (137-145) mmol/L Potassium 4.4 (3.6-5.0) mmol/L Chloride 121.7 H (98-107) mmol/L Carbon Dioxide 25 (22-30) mmol/L Anion Gap 20 mmol/L BUN 79 H (7-17) mg/dL Creatinine 2.7 H (0.7-1.2) mg/dL Estimated GFR 21 ml/min BUN/Creatinine Ratio 29 % Glucose 741 H* (65-100) mg/dL POC Glucose (70-105) Lactic Acid 5.00 H* (0.7-2.0) mmol/L Calcium 9.1 (8.4-10.2) mg/dL Total Bilirubin 0.50 (0.1-1.2) mg/dL AST 18 (5-40) units/L ALT < 5 L (7-56) units/L Alkaline Phosphatase 105 (35-129) units/L Ammonia (25-60) umol/L Total Creatine Kinase 260 H (30-135) units/L Troponin T 0.102 H* (0.00-0.029) ng/mL Total Protein 7.6 (6.3-8.2) g/dL Albumin 2.4 L (3.9-5) g/dL Albumin/Globulin Ratio 0.5 % Urine Color (Yellow) Urine Turbidity (Clear) Urine pH (5.0-7.0) Ur Specific Procious (1.003-1.030) Urine Protein (Negative) mg/dL Urine Glucose (UA) (Negative) mg/dL Urine Ketones (Negative) mg/dL Urine Blood (Negative) Urine Nitrite (Negative) Urine Bilirubin (Negative) Urine Urobilinogen (<2.0) mg/dL Ur Leukocyte Esterase (Negative) Urine WBC (Auto) (0.0-6.0) /HPF Urine RBC (Auto) (0.0-6.0) /HPF U Epithel Cells (Auto) (0-13.0) /HPF Urine Bacteria (Auto) (Negative) /HPF Urine WBC Clumps /HPF Ur Transition Epith Cell /HPF Urine Mucus /HPF Salicylates (2.8-20.0) mg/dL Urine Opiates Screen Urine Methadone Screen Acetaminophen (10.0-30.0) ug/mL Ur Barbiturates Screen Ur Phencyclidine Scrn Ur Amphetamines Screen U Benzodiazepines Scrn Urine Cocaine Screen U Marijuana (THC) Screen Drugs of Abuse Note Plasma/Serum Alcohol (0-0.07) % 09/24/18 09/24/18 09/24/18 Range/Units 18:12 18:12 18:12 WBC (4.5-11.0) K/mm3 RBC (3.65-5.03) M/mm3 Hgb (10.1-14.3) gm/dl Hct (30.3-42.9) % MCV (79-97) fl MCH (28-32) pg MCHC (30-34) % RDW (13.2-15.2) % Plt Count (140-440) K/mm3 Lymph % (Auto) (13.4-35.0) % Whitley % (Auto) (0.0-7.3) % Eos % (Auto) (0.0-4.3) % Baso % (Auto) (0.0-1.8) % Lymph # (1.2-5.4) K/mm3 Whitley # (0.0-0.8) K/mm3 Eos # (0.0-0.4) K/mm3 Baso # (0.0-0.1) K/mm3 Total Counted Seg Neutrophils % (40.0-70.0) % Seg Neuts % (Manual) Band Neutrophils % Lymphocytes % (Manual) Reactive Lymphs % (Man) Monocytes % (Manual) Eosinophils % (Manual) Basophils % (Manual) Metamyelocytes % Myelocytes % Promyelocytes % Blast Cells % Nucleated RBC % Seg Neutrophils # (1.8-7.7) K/mm3 Seg Neutrophils # Man Band Neutrophils # Lymphocytes # (Manual) Abs React Lymphs (Man) Monocytes # (Manual) Eosinophils # (Manual) Basophils # (Manual) Metamyelocytes # Myelocytes # Promyelocytes # Blast Cells # WBC Morphology Hypersegmented Neuts Hyposegmented Neuts Hypogranular Neuts Hypersegmented Polys Smudge Cells Toxic Granulation Toxic Vacuolation Dohle Bodies Pelger-Huet Anomaly Janna Rods Platelet Estimate Clumped Platelets Plt Clumps, EDTA Large Platelets Giant Platelets Platelet Satelliting Plt Morphology Comment RBC Morphology Dimorphic RBCs Polychromasia Hypochromasia Poikilocytosis Basophilic Stippling Anisocytosis Microcytosis Macrocytosis Spherocytes Pappenheimer Bodies Sickle Cells Target Cells Tear Drop Cells Ovalocytes Stomatocytes Helmet Cells Jimenez-[place] Bodies [place] Rings [place] Cells Bite Cells Crenated Cell Elliptocytes Acanthocytes (Spur) Rouleaux Hemoglobin C Crystals Schistocytes Malaria parasites Terry Bodies Hem Pathologist Commnt POC ABG pH (7.35-7.45) POC ABG pCO2 (35-45) POC ABG pO2 (80-105) POC ABG HCO3 (22-26 mml/L) POC ABG Total CO2 (23-27mmol/L) POC ABG O2 Sat POC ABG Base Excess ((-2) - (+3)mmol/L) FiO2 % Sodium (137-145) mmol/L Potassium (3.6-5.0) mmol/L Chloride (98-107) mmol/L Carbon Dioxide (22-30) mmol/L Anion Gap mmol/L BUN (7-17) mg/dL Creatinine (0.7-1.2) mg/dL Estimated GFR ml/min BUN/Creatinine Ratio % Glucose (65-100) mg/dL POC Glucose (70-105) Lactic Acid (0.7-2.0) mmol/L Calcium (8.4-10.2) mg/dL Total Bilirubin (0.1-1.2) mg/dL AST (5-40) units/L ALT (7-56) units/L Alkaline Phosphatase (35-129) units/L Ammonia 42.0 (25-60) umol/L Total Creatine Kinase (30-135) units/L Troponin T (0.00-0.029) ng/mL Total Protein (6.3-8.2) g/dL Albumin (3.9-5) g/dL Albumin/Globulin Ratio % Urine Color (Yellow) Urine Turbidity (Clear) Urine pH (5.0-7.0) Ur Specific Procious (1.003-1.030) Urine Protein (Negative) mg/dL Urine Glucose (UA) (Negative) mg/dL Urine Ketones (Negative) mg/dL Urine Blood (Negative) Urine Nitrite (Negative) Urine Bilirubin (Negative) Urine Urobilinogen (<2.0) mg/dL Ur Leukocyte Esterase (Negative) Urine WBC (Auto) (0.0-6.0) /HPF Urine RBC (Auto) (0.0-6.0) /HPF U Epithel Cells (Auto) (0-13.0) /HPF Urine Bacteria (Auto) (Negative) /HPF Urine WBC Clumps /HPF Ur Transition Epith Cell /HPF Urine Mucus /HPF Salicylates < 0.3 L (2.8-20.0) mg/dL Urine Opiates Screen Urine Methadone Screen Acetaminophen < 5.0 L (10.0-30.0) ug/mL Ur Barbiturates Screen Ur Phencyclidine Scrn Ur Amphetamines Screen U Benzodiazepines Scrn Urine Cocaine Screen U Marijuana (THC) Screen Drugs of Abuse Note Plasma/Serum Alcohol (0-0.07) % 09/24/18 09/24/18 09/24/18 Range/Units 18:12 18:18 19:26 WBC (4.5-11.0) K/mm3 RBC (3.65-5.03) M/mm3 Hgb (10.1-14.3) gm/dl Hct (30.3-42.9) % MCV (79-97) fl MCH (28-32) pg MCHC (30-34) % RDW (13.2-15.2) % Plt Count (140-440) K/mm3 Lymph % (Auto) (13.4-35.0) % Whitley % (Auto) (0.0-7.3) % Eos % (Auto) (0.0-4.3) % Baso % (Auto) (0.0-1.8) % Lymph # (1.2-5.4) K/mm3 Whitley # (0.0-0.8) K/mm3 Eos # (0.0-0.4) K/mm3 Baso # (0.0-0.1) K/mm3 Total Counted Seg Neutrophils % (40.0-70.0) % Seg Neuts % (Manual) Band Neutrophils % Lymphocytes % (Manual) Reactive Lymphs % (Man) Monocytes % (Manual) Eosinophils % (Manual) Basophils % (Manual) Metamyelocytes % Myelocytes % Promyelocytes % Blast Cells % Nucleated RBC % Seg Neutrophils # (1.8-7.7) K/mm3 Seg Neutrophils # Man Band Neutrophils # Lymphocytes # (Manual) Abs React Lymphs (Man) Monocytes # (Manual) Eosinophils # (Manual) Basophils # (Manual) Metamyelocytes # Myelocytes # Promyelocytes # Blast Cells # WBC Morphology Hypersegmented Neuts Hyposegmented Neuts Hypogranular Neuts Hypersegmented Polys Smudge Cells Toxic Granulation Toxic Vacuolation Dohle Bodies Pelger-Huet Anomaly Janna Rods Platelet Estimate Clumped Platelets Plt Clumps, EDTA Large Platelets Giant Platelets Platelet Satelliting Plt Morphology Comment RBC Morphology Dimorphic RBCs Polychromasia Hypochromasia Poikilocytosis Basophilic Stippling Anisocytosis Microcytosis Macrocytosis Spherocytes Pappenheimer Bodies Sickle Cells Target Cells Tear Drop Cells Ovalocytes Stomatocytes Helmet Cells Jimenez-[place] Bodies [place] Rings [place] Cells Bite Cells Crenated Cell Elliptocytes Acanthocytes (Spur) Rouleaux Hemoglobin C Crystals Schistocytes Malaria parasites Terry Bodies Hem Pathologist Commnt POC ABG pH 7.332 L (7.35-7.45) POC ABG pCO2 47.5 H (35-45) POC ABG pO2 233 H (80-105) POC ABG HCO3 25.2 (22-26 mml/L) POC ABG Total CO2 27 (23-27mmol/L) POC ABG O2 Sat 100 POC ABG Base Excess -1 ((-2) - (+3)mmol/L) FiO2 100 % Sodium (137-145) mmol/L Potassium (3.6-5.0) mmol/L Chloride (98-107) mmol/L Carbon Dioxide (22-30) mmol/L Anion Gap mmol/L BUN (7-17) mg/dL Creatinine (0.7-1.2) mg/dL Estimated GFR ml/min BUN/Creatinine Ratio % Glucose (65-100) mg/dL POC Glucose (70-105) Lactic Acid 6.10 H* (0.7-2.0) mmol/L Calcium (8.4-10.2) mg/dL Total Bilirubin (0.1-1.2) mg/dL AST (5-40) units/L ALT (7-56) units/L Alkaline Phosphatase (35-129) units/L Ammonia (25-60) umol/L Total Creatine Kinase (30-135) units/L Troponin T (0.00-0.029) ng/mL Total Protein (6.3-8.2) g/dL Albumin (3.9-5) g/dL Albumin/Globulin Ratio % Urine Color (Yellow) Urine Turbidity (Clear) Urine pH (5.0-7.0) Ur Specific Procious (1.003-1.030) Urine Protein (Negative) mg/dL Urine Glucose (UA) (Negative) mg/dL Urine Ketones (Negative) mg/dL Urine Blood (Negative) Urine Nitrite (Negative) Urine Bilirubin (Negative) Urine Urobilinogen (<2.0) mg/dL Ur Leukocyte Esterase (Negative) Urine WBC (Auto) (0.0-6.0) /HPF Urine RBC (Auto) (0.0-6.0) /HPF U Epithel Cells (Auto) (0-13.0) /HPF Urine Bacteria (Auto) (Negative) /HPF Urine WBC Clumps /HPF Ur Transition Epith Cell /HPF Urine Mucus /HPF Salicylates (2.8-20.0) mg/dL Urine Opiates Screen Urine Methadone Screen Acetaminophen (10.0-30.0) ug/mL Ur Barbiturates Screen Ur Phencyclidine Scrn Ur Amphetamines Screen U Benzodiazepines Scrn Urine Cocaine Screen U Marijuana (THC) Screen Drugs of Abuse Note Plasma/Serum Alcohol < 0.01 (0-0.07) % 09/24/18 09/24/18 09/24/18 Range/Units 21:00 21:00 22:10 WBC (4.5-11.0) K/mm3 RBC (3.65-5.03) M/mm3 Hgb (10.1-14.3) gm/dl Hct (30.3-42.9) % MCV (79-97) fl MCH (28-32) pg MCHC (30-34) % RDW (13.2-15.2) % Plt Count (140-440) K/mm3 Lymph % (Auto) (13.4-35.0) % Whitley % (Auto) (0.0-7.3) % Eos % (Auto) (0.0-4.3) % Baso % (Auto) (0.0-1.8) % Lymph # (1.2-5.4) K/mm3 Whitley # (0.0-0.8) K/mm3 Eos # (0.0-0.4) K/mm3 Baso # (0.0-0.1) K/mm3 Total Counted Seg Neutrophils % (40.0-70.0) % Seg Neuts % (Manual) Band Neutrophils % Lymphocytes % (Manual) Reactive Lymphs % (Man) Monocytes % (Manual) Eosinophils % (Manual) Basophils % (Manual) Metamyelocytes % Myelocytes % Promyelocytes % Blast Cells % Nucleated RBC % Seg Neutrophils # (1.8-7.7) K/mm3 Seg Neutrophils # Man Band Neutrophils # Lymphocytes # (Manual) Abs React Lymphs (Man) Monocytes # (Manual) Eosinophils # (Manual) Basophils # (Manual) Metamyelocytes # Myelocytes # Promyelocytes # Blast Cells # WBC Morphology Hypersegmented Neuts Hyposegmented Neuts Hypogranular Neuts Hypersegmented Polys Smudge Cells Toxic Granulation Toxic Vacuolation Dohle Bodies Pelger-Huet Anomaly Janna Rods Platelet Estimate Clumped Platelets Plt Clumps, EDTA Large Platelets Giant Platelets Platelet Satelliting Plt Morphology Comment RBC Morphology Dimorphic RBCs Polychromasia Hypochromasia Poikilocytosis Basophilic Stippling Anisocytosis Microcytosis Macrocytosis Spherocytes Pappenheimer Bodies Sickle Cells Target Cells Tear Drop Cells Ovalocytes Stomatocytes Helmet Cells [place] Bodies [place] Rings [place] Cells Bite Cells Crenated Cell Elliptocytes Acanthocytes (Spur) Rouleaux Hemoglobin C Crystals Schistocytes Malaria parasites Terry Bodies Hem Pathologist Commnt POC ABG pH (7.35-7.45) POC ABG pCO2 (35-45) POC ABG pO2 (80-105) POC ABG HCO3 (22-26 mml/L) POC ABG Total CO2 (23-27mmol/L) POC ABG O2 Sat POC ABG Base Excess ((-2) - (+3)mmol/L) FiO2 % Sodium (137-145) mmol/L Potassium (3.6-5.0) mmol/L Chloride (98-107) mmol/L Carbon Dioxide (22-30) mmol/L Anion Gap mmol/L BUN (7-17) mg/dL Creatinine (0.7-1.2) mg/dL Estimated GFR ml/min BUN/Creatinine Ratio % Glucose (65-100) mg/dL POC Glucose > 500 H (70-105) Lactic Acid (0.7-2.0) mmol/L Calcium (8.4-10.2) mg/dL Total Bilirubin (0.1-1.2) mg/dL AST (5-40) units/L ALT (7-56) units/L Alkaline Phosphatase (35-129) units/L Ammonia (25-60) umol/L Total Creatine Kinase (30-135) units/L Troponin T (0.00-0.029) ng/mL Total Protein (6.3-8.2) g/dL Albumin (3.9-5) g/dL Albumin/Globulin Ratio % Urine Color Yellow (Yellow) Urine Turbidity Turbid (Clear) Urine pH 5.0 (5.0-7.0) Ur Specific Procious 1.020 (1.003-1.030) Urine Protein 100 mg/dl (Negative) mg/dL Urine Glucose (UA) 150 (Negative) mg/dL Urine Ketones Tr (Negative) mg/dL Urine Blood Lg (Negative) Urine Nitrite Neg (Negative) Urine Bilirubin Neg (Negative) Urine Urobilinogen < 2.0 (<2.0) mg/dL Ur Leukocyte Esterase Mod (Negative) Urine WBC (Auto) > 182.0 H (0.0-6.0) /HPF Urine RBC (Auto) > 182.0 (0.0-6.0) /HPF U Epithel Cells (Auto) 26.0 H (0-13.0) /HPF Urine Bacteria (Auto) 4+ (Negative) /HPF Urine WBC Clumps 3+ /HPF Ur Transition Epith Cell 3 /HPF Urine Mucus 1+ /HPF Salicylates (2.8-20.0) mg/dL Urine Opiates Screen Presumptive negative Urine Methadone Screen Presumptive negative Acetaminophen (10.0-30.0) ug/mL Ur Barbiturates Screen Presumptive negative Ur Phencyclidine Scrn Presumptive negative Ur Amphetamines Screen Presumptive negative U Benzodiazepines Scrn Presumptive negative Urine Cocaine Screen Presumptive negative U Marijuana (THC) Screen Presumptive negative Drugs of Abuse Note Disclamer Plasma/Serum Alcohol (0-0.07) % - EKG Data -: EKG Interpreted by Me EKG shows normal: sinus rhythm, axis, intervals, QRS complexes, ST-T waves Rate: tachycardia - Radiology Data Radiology results: report reviewed, image reviewed interpreted by me: Bilateral pneumonia noted - Medical Decision Making Patient is a 73-year-old female that presents emergency room with hypotension an d altered mental status and unresponsiveness. Patient was unresponsive and intubated immediately upon arrival. Patient was found to have hypertension. Patient required 2 pressures and blood pressure minimally improved. Patient after multiple attempts to increase her pressure eventually went into a cardiac arrest. CPR was performed cessation efforts were terminated due to no signs of life. See procedure notes and code notes.) According to ACLS guidelines. Patient given multiple saline boluses. Patient started on antibiotics. Chest x-ray shows bilateral pneumonia. Multiple lab abnormalities noted. - Differential Diagnosis septic shock. Sepsis. Pneumonia. Altered mental status. Unresponsive. Critical Care Time: Yes Critical care attestation.: If time is entered above; I have spent that time in minutes in the direct care of this critically ill patient, excluding procedure time. Critical Care Time: 80 minutes ED Disposition Clinical Impression: Unresponsive, Hyperglycemia, Septic shock, Cardiac arrest, Hypernatremia Altered mental state Qualifiers: Altered mental status type: unspecified Qualified Code(s): R41.82 - Altered mental status, unspecified Hypotension Qualifiers: Hypotension type: unspecified hypotension type Qualified Code(s): I95.9 - Hypotension, unspecified Sepsis Qualifiers: Sepsis type: sepsis due to unspecified organism Qualified Code(s): A41.9 - Sepsis, unspecified organism Pneumonia Qualifiers: Pneumonia type: due to unspecified organism Laterality: bilateral Lung location: lower lobe of lung Qualified Code(s): J18.1 - Lobar pneumonia, unspe cified organism Disposition: DC-20 Is pt being admited?: No Does the pt Need Aspirin: No Condition: Critical Time of Disposition: 22:34
[2018-09-24] MEDS ORDERED: NACL 0.9% 1000 ML 1,000 ML IV ONE ×2 (17:44→18:38)
[2018-09-24] MEDS ORDERED: MAXIPIME/NS 2 GM/100 ML 2 GM/100 ML BAG IV ONE (17:46)
[2018-09-24] MEDS ORDERED: fentaNYL DRIP Premix 2,000 MCG/100 ML BAG IV SCH (18:00)
[2018-09-24] MEDS ORDERED: IBUPROFEN ONE (18:27)
[2018-09-24] MEDS ORDERED: NACL 0.9% 1000 ML IV ONE (18:27)
[2018-09-24 18:45] LABS: Basophils # (Auto) 0.1 K/mm3 (0.0-0.1); Eosinophils % (Auto) 0.3 % (0.0-4.3); Mean Corpuscular HGB Conc 30 % (30-34); Mean Corpuscular Volume 94 fl (79-97); Monocytes % (Auto) 3.2 % (0.0-7.3); Platelet Count 251 K/mm3 (140-440); Red Blood Count 4.33 M/mm3 (3.65-5.03); Red Cell Distribution Width 16.6 % (13.2-15.2)
[2018-09-24 18:46] LABS: Hematocrit 40.6 % (30.3-42.9); Hemoglobin 12.1 gm/dl (10.1-14.3)
--- NOTE | 2018-09-24 18:52 | XRay Report ---
PROCEDURE: XR CHEST 1V AP TECHNIQUE: Frontal chest radiograph. HISTORY: Altered Mental Status COMPARISONS: None FINDINGS: An endotracheal tube is present with the tip projecting in the mid thoracic trachea. The enteric tube tip lies off the study however the side port lies within the stomach. The cardiomediastinal silhouet te is normal. Mild hazy right middle lobe and lower lobe opacities are seen. Streaky left lower lobe opacities are seen. No pleural effusion. No pneumothorax. No acute osseous abnormality. IMPRESSION: Bibasilar atelectasis versus pneumonia. This document is electronically signed by Joselyn Tapia., September 24 2018 06:50:29 PM ET
[2018-09-24 18:59] LABS: Albumin 2.4 g/dL (3.9-5); BUN/Creatinine Ratio 29; Blood Urea Nitrogen 79 mg/dL (7-17); Calcium 9.1 mg/dL (8.4-10.2); Hemolysis Index 8
[2018-09-24 19:09] LABS: Alanine Aminotransferase < 5 units/L (7-56)
[2018-09-24] MEDS ORDERED: ZEMURON IV ONE (19:14)
[2018-09-24] MEDS ORDERED: LEVOPHED DRIP 4 MG/NS 250 ML 4 MG/250 ML BAG IV ONE (19:16)
--- NOTE | 2018-09-24 19:22 | Cat Scan Report ---
PROCEDURE: CT HEAD/BRAIN WO CON TECHNIQUE: Computerized tomography of the head was performed without contrast material. CT DOSE LENGTH PRODUCT: 928.1 mGycm HISTORY: Altered Mental Status COMPARISONS: None . FINDINGS: Unenhanced CT of the brain was performed and demonstrates no acute intracranial hemorrhage, extra-axial fluid collection, midline shift or mass effect. The ventricles and basal cisterns are no t effaced. There is an old left basal ganglia lacunar infarct. There is an old left subcortical white matter lac unar infarct image 36. There are moderate chronic-appearing small vessel ischemic white matter change s in subcortical and periventricular white matter. No acute infarct is seen. MRI may be considered if patient has persistent symptomatology. The mastoid air cells and middle ears appear clear. There is no evidence of acute sinusitis. IMPRESSION: No acute intracranial hemorrhage. This document is electronically signed by Deon Downs MD., September 24 2018 07:20:14 PM ET
[2018-09-24] MEDS ORDERED: VANCOMYCIN 1,500 MG in NACL 0.9% 500 ML 500 ML IV ONE ×2 (19:27→20:00)
[2018-09-24 19:45] LABS: Basophils % (Auto) 0.6 % (0.0-1.8); Lymphocytes # (Auto) 0.7 K/mm3 (1.2-5.4); Lymphocytes % (Auto) 6.1 % (13.4-35.0); Monocytes # (Auto) 0.4 K/mm3 (0.0-0.8)
[2018-09-24] MEDS ORDERED: IBUPROFEN PO ONE (20:00)
[2018-09-24] MEDS ORDERED: LEVOPHED DRIP 4 MG/NS 250 ML 4 MG/250 ML BAG IV SCH ×2 (20:00→20:58)
[2018-09-24] MEDS ORDERED: VANCOMYCIN PHARMACY TO DOSE IV SCH (20:00)
[2018-09-24] MEDS ORDERED: DOBUTREX DRIP 500MG/D5W 250ML 500 MG/250 ML BAG IV ONE (20:58)
[2018-09-24 21:27] LABS: Bacteria,Urine 4+ /HPF (Negative); Bilirubin,Urine NEG (Negative); Blood,Urine LG (Negative); Color,Urine Yellow (Yellow); Mucus,Urine 1+ /HPF; Urobilinogen,Urine < 2.0 mg/dL (<2.0)
[2018-09-24 21:36] LABS: Amphetamine Screen,Urine PRESUMPTIVE NEGATIVE; Benzodiazepines Screen,Urine PRESUMPTIVE NEGATIVE; Cannabinoid Screen,Urine PRESUMPTIVE NEGATIVE; Cocaine Screen,Urine PRESUMPTIVE NEGATIVE; Methadone Screen,Urine PRESUMPTIVE NEGATIVE; Opiate Screen,Urine PRESUMPTIVE NEGATIVE
[2018-09-24 21:38] LABS: RBC,Urine > 182.0 /HPF (0.0-6.0); WBC,Urine > 182.0 /HPF (0.0-6.0)
[2018-09-24] MEDS ORDERED: HumuLIN R ONE (22:12)
[2018-09-24] MEDS ORDERED: HumuLIN R IV ONE (22:17)
[2018-09-24] MEDS ORDERED: ADRENALIN 8 MG in NACL 0.9% 250ML 242 ML IV ONE (22:22)
[2018-09-24] MEDS ORDERED: ADRENALIN ONE (22:25)
[2018-09-24 23:24] VITALS: BP 150/110
== END 2018-09-24 22:31 ==
LOC: ED 17:25
DX: I46.9 Cardiac arrest, cause unspecified (principal); E87.0 Hyperosmolality and hypernatremia; A41.9 Sepsis, unspecified organism; I95.9 Hypotension, unspecified; J18.1 Lobar pneumonia, unspecified organism; E11.65 Type 2 diabetes mellitus with hyperglycemia; I10 Essential (primary) hypertension; M19.90 Unspecified osteoarthritis, unspecified site; K21.9 Gastro-esophageal reflux disease without esophagitis; G20 Parkinson's disease; Z79.82 Long term (current) use of aspirin; Z79.4 Long term (current) use of insulin; Z79.899 Other long term (current) drug therapy; Z88.2 Allergy status to sulfonamides
CPT/HCPCS: 31500; 36415; 36556; 36569; 70450; 71045; 80053; 80307; 81001; 82140; 82550; 82803; 82962; 84484; 85025; 87040; 87086; 92950; 93005; 93010; 96365; 96366; 96368; 99291; 99292; G0480; J0171; J0692; J1250; J3010; J3370; J7030; J7040; 80320; 94002; 96367; 96375; J1815; J7050